=== PATIENT | female | born 1940 | race Caucasian/White ===

== ENCOUNTER 2021-10-30 07:37 | Outpatient (CLI) | payer MEDICARE, BC, SELFPAY | END 2021-10-30 07:38 | disposition home or self-care (01) | LOC: INJ CL 07:38 | PROVIDERS: PCP Family Medicine; Visit Provider Family Medicine | DX: M51.36 Other intervertebral disc degeneration, lumbar region (principal); M54.16 Radiculopathy, lumbar region | CPT/HCPCS: 62323; Q9966 ==

== ENCOUNTER 2021-12-13 12:53 | Outpatient (CLI) | payer MEDICARE, BC, SELFPAY ==
--- NOTE | 2021-12-13 13:00 | CRLHL7_ITS ---
For Patients: As a result of the Century Cures Act, medical imaging exams and procedure reports are released immediately into your electronic medical record. You may view this report before your referring provider. If you have questions, please contact your health care provider. INDICATION: Low back pain. COMPARISON: None available. TECHNIQUE: Sagittal T1, T2, and STIR sequences. Axial T1 and T2 weighted sequences. FINDINGS: Retrolisthesis of L2 on L3 and L3 on L4 measures approximate 5 mm. Anterolisthesis of L4 on L5 measures approximately 5 mm. No fractures. No vertebral body loss of height. No ligament injury. Postoperative changes of laminectomy at L4-5 with posterior dmitriy and transpedicular screw fixation. No suspicious osseous lesions. Normal conus terminates at L1. T12-L1 L1-2: No spinal canal or neural foraminal narrowing. L2-3: Disc degeneration. Posterior disc bulge. Combined facet arthropathy, there is moderate narrowing of spinal canal. No neural foraminal narrowing. Mild facet arthropathy. L3-4: Grade 1 retrolisthesis. Disc degeneration and posterior disc bulge. Combined with ligament flavum and facet hypertrophy, there moderate severe right and moderate left neural foraminal narrowing. Potential impingement of the exiting L3 nerve roots, right greater left. L4-5: Postoperative changes. No narrowing of spinal canal. Allowing for artifact, there may be mild narrowing of the right neural foramen. No narrowing of the left neural foramen. L5-S1: Posterior disc bulge. Tapered narrowing of thecal sac. No impingement of the traversing S1 nerve roots. Mild narrowing of the left neural foramen. No narrowing of the right neural foramen. Normal visualized SI joints. IMPRESSION: 1. Grade 1 retrolisthesis of L2 on L3 and L3 on L4. 2. Grade 1 anterolisthesis of L4 on L5. 3. No acute fractures. 4. Postop changes L4-5. 5. At L2-3, moderate narrowing of spinal canal 6. At L3-4, moderate to severe narrowing of the right neural foramen. Moderate narrowing of the left neuroforamen. Potential impingement of the exiting L3 nerve roots, right greater than the left. 7. At L4-5, mild narrowing of the right neural foramina 8. At L5-S1, mild narrowing of the left neuroforamen Dictated by Augei Maki MD @ 12/14/2021 10:13:20 AM (Electronically Signed)
== END 2021-12-13 12:54 | disposition home or self-care (01) ==
PROVIDERS: PCP Family Medicine; Visit Provider Family Medicine
DX: M54.50 Low back pain, unspecified (principal); M51.26 Other intervertebral disc displacement, lumbar region; M51.27 Other intervertebral disc displacement, lumbosacral region
CPT/HCPCS: 72148

== ENCOUNTER 2022-01-24 15:49 | Outpatient (CLI) | payer MEDICARE, BC, SELFPAY | END 2022-01-24 15:50 | disposition home or self-care (01) | LOC: AMB 03-03 20:35 | PROVIDERS: PCP Family Medicine; Visit Provider Emergency Medicine Emergency Medical Services | DX: R06.02 Shortness of breath (principal) | CPT/HCPCS: A0425; A0427 ==

== ENCOUNTER 2022-01-24 16:21 | Emergency (ER) | payer MEDICARE, BC, SELFPAY ==
[2022-01-24] VITALS (10 sets, daily range): BP systolic 128–156; BP diastolic 54–72; PULSE 60–78; RESP 14–23; TEMP 36.2; O2SAT 91–97; BMI 27.4
--- NOTE | 2022-01-24 17:12 | CRLHL7_ITS ---
For Patients: As a result of the Cures Act, medical imaging exams and procedure reports are released immediately into your electronic medical record. You may view this report before your referring provider. If you have questions, please contact your health care provider. INDICATION: Shortness of breath. TECHNIQUE: Chest 2 views. COMPARISON: None. FINDINGS: Lungs: Streaky bibasilar opacities. Pleura: No pleural effusion or pneumothorax. Mild elevation of the right diaphragm. Heart and Mediastinum: The cardiomediastinal silhouette is normal. The vessels are unremarkable. Bones: Unremarkable. IMPRESSION: Streaky bibasilar opacities could be atelectasis, scarring, or developing infection. Dictated by Patricio Posada MD @ 01/24/2022 8:25:47 PM (Electronically Signed)
[2022-01-24 17:38] LABS: ABG PCO2 50 mmHG (35-45); Base Excess ABG 5.4 mmol/L (-3.0-3.0); HCO3 ABG 31 mmol/L (21-28); Oxygen Saturation ABG 91 % (92-100); PO2 ABG 65.7 mmHG (80-105); TCO2 ABG 29 mmol/l (21-30)
[2022-01-24 18:15] LABS: Lactate* 0.7 mmol/L (0.5-1.9)
[2022-01-24 18:19] LABS: Basophils Absolute Auto 0.03 K/uL (0.00-0.30); Basophils Percent Auto 0.6 % (0.0-3.0); Eosinophils Absolute Auto 0.14 K/uL (0.00-0.50); Eosinophils Percent Auto 2.8 % (0.0-7.0); Hematocrit 36.8 % (33.0-51.0); Hemoglobin* 11.8 gm/dL (12.0-16.0); Immature Granulocytes Abs Auto 0.02 K/uL (0.00-0.30); Lymphocytes Absolute Auto 1.83 K/uL (0.90-2.90); Lymphocytes Percent Auto 36.8 % (20-44); Mean Corpuscular HGB Conc 32 gm/dL (32-36); Mean Corpuscular Hemoglobin 31 pg (26-34); Mean Corpuscular Volume 98 fL (80-100); Monocytes Percent Auto 12.3 % (0.0-11.0); Neutrophils Absolute Auto 2.34 K/uL (1.7-7.0); Neutrophils Percent Auto 47.1 % (42.0-72.0); Platelet Count* 184 K/uL (140-440); RDW Coefficient of Variation % 12.7 % (11.5-15.5); Red Blood Count 3.76 m/uL (4.00-5.20); White Blood Count* 4.97 K/uL (4.50-11.00)
[2022-01-24 18:20] LABS: Slide Review Reflex No
[2022-01-24 18:25] LABS: PCR FLU A Negative PCR FLU A (Negative); PCR FLU B Negative PCR FLU B (Negative); PCR RSV Negative PCR RSV (Negative)
[2022-01-24 18:33] LABS: SARS PCR* Negative SARS-CoV-2 (Negative)
[2022-01-24 18:37] LABS: INR 0.96 (0.91-1.10); Partial Thromboplastin Time* 33 Seconds (23-33); Prothrombin Time 13.4 Seconds
[2022-01-24 18:39] LABS: D Dimer Quantitative* 0.31 ug/ml (0.00-0.50)
[2022-01-24 18:48] LABS: Chloride* 101 mmol/L (96-114); Sodium* 140 mmol/L (135-149)
[2022-01-24 18:49] LABS: Potassium* 4.1 mmol/L (3.6-5.1)
[2022-01-24 18:51] LABS: Carbon Dioxide* 31 mmol/L (20-32); Estimated Glomerular Filt Rate 57 ml/min
[2022-01-24 18:52] LABS: Blood Urea Nitrogen* 28 mg/dL (7-30); Calcium* 8.7 mg/dL (8.4-10.6); Glucose* 93 mg/dL (60-115)
[2022-01-24 19:00] LABS: NT Pro B Type NatriureticPept* 244 PG/mL (0-450)
--- NOTE | 2022-01-24 19:10 | ED.SOB ---
HPI - SOB/Dyspnea General Date Seen: 01/24/22 Chief Complaint: Shortness of Breath/Dyspnea Stated Complaint: Shortness of breath Time Seen by Provider: 01/24/22 16:55 Source: patient and family Mode of arrival: EMS Limitations: no limitations History of Present Illness HPI Narrative: Melva is an 81-year-old female who presents here for evaluation of shortness of breath she was at the [facility] actually for acupuncture when it was noted that she was very short of breath, seen initially by who then called me, and thought she needed to be evaluated, saturations there approximately 90% on room air. Melva denies any chest pain, admits that she has had shortness of breath this been progressive over a 5-6 month period. She has noted some increased swelling in her legs, no nausea no vomiting denies any abdominal pain. She has had no fevers chills or sweats or any acute issue, she said she felt she just could get her breath today when she was lying on her back getting acupuncture. MD elicited complaint: shortness of breath Onset (ago): month(s) Exacerbating factors: lying flat, exertion and movement Relieving factors: oxygen Associated symptoms: denies other symptoms Treatment prior to arrival: oxygen Related Data Home oxygen amount: none Home Medications Medication Instructions Recorded Confirmed ipratropium bromide 17 2 puff inhalation Q8H 10/18/21 10/18/21 mcg/actuation HFA aerosol inhaler (Atrovent HFA) metoprolol succinate 50 mg 50 mg PO QDAY 10/18/21 10/18/21 tablet,extended release 24 hr tramadol 50 mg tablet 50 mg PO BID PRN 10/18/21 10/18/21 epinephrine 0.3 mg/0.3 mL 0.3 mg IM 12/06/21 12/06/21 injection, auto-injector esomeprazole magnesium 40 mg 40 mg PO DAILY@06 12/06/21 12/06/21 capsule,delayed release furosemide 40 mg tablet 40 mg PO BID@12/06/21 12/06/21 hydralazine 25 mg tablet 25 mg PO 12/06/21 12/06/21 levothyroxine 150 mcg tablet 150 mcg PO DAILY 12/06/21 12/06/21 losartan 100 mg tablet 100 mg PO DAILY 12/06/21 12/06/21 metoprolol succinate 50 mg mg PO DAILY 12/06/21 12/06/21 tablet,extended release 24 hr peg 400-propylene glycol 0.4 %-0.3 2 drp ophthalmic (eye) BID 12/06/21 12/06/21 % eye drops propranolol 10 mg tablet 10 mg PO .Daily as needed PRN 12/06/21 12/06/21 rivaroxaban 10 mg tablet 10 mg PO DAILY 12/06/21 12/06/21 rosuvastatin 10 mg tablet 10 mg PO DAILY 12/06/21 12/06/21 warfarin 5 mg tablet 5 mg PO DAILY 12/06/21 12/06/21 zaleplon 10 mg capsule 10 mg PO 12/06/21 12/06/21 Previous Rx's Medication Instructions Recorded doxycycline monohydrate 100 mg 100 mg PO BID #20 caps 01/24/22 capsule Allergies Allergy/AdvReac Type Severity Reaction Status Date / Time amlodipine Allergy Intermediate Edema Verified 11/14/21 13:37 codeine Allergy Intermediate Rash Verified 11/14/21 13:37 procaine Allergy Intermediate Swelling, Verified 11/14/21 13:37 rash terbinafine Allergy Intermediate Rash, Verified 11/14/21 13:37 nausea, vomiting trazodone Allergy Intermediate Unable to Verified 11/14/21 13:37 recall trospium Allergy Intermediate Diarrhea Verified 11/14/21 13:37 diazepam Allergy Mild Cardiac Verified 11/14/21 13:37 arrest midazolam Allergy Mild Cardiac Verified 11/14/21 13:37 arrest NSAIDS (Non-Steroidal Allergy Mild Unknown Verified 11/14/21 13:37 Anti-Inflamma penicillin V Allergy Mild Verified 11/14/21 13:37 propafenone Allergy Mild GI upset Verified 11/14/21 13:37 zolpidem Allergy Mild Unknown Verified 11/14/21 13:37 aluminum Allergy Unknown Verified 11/14/21 13:37 ampicillin Allergy Unknown Hives Verified 11/14/21 13:37 atorvastatin Allergy Unknown Myalgia Verified 11/14/21 13:37 azithromycin Allergy Unknown Diarrhea Verified 11/14/21 13:37 bupivacaine Allergy Unknown Verified 11/14/21 13:37 ciprofloxacin Allergy Unknown Verified 11/14/21 13:37 fentanyl Allergy Unknown Eye Verified 11/14/21 13:37 swelling hydromorphone Allergy Unknown Hives Verified 11/14/21 13:37 meperidine Allergy Unknown Verified 11/14/21 13:37 methylprednisolone Allergy Unknown Verified 11/14/21 13:37 morphine Allergy Unknown Hives Verified 11/14/21 13:37 promethazine Allergy Unknown Nausea/vomi Verified 11/14/21 13:37 ting simvastatin Allergy Unknown Diarrhea Verified 11/14/21 13:37 sumatriptan AdvReac Intermediate Ineffective Verified 11/14/21 13:37 Ketorolac tromethamine Allergy Severe Internal Uncoded 11/14/21 13:37 bleeding NARCOTICS Allergy Severe Cardiac Uncoded 11/14/21 13:37 arrest Opioid Analgesics Allergy Mild Hives Uncoded 11/14/21 13:37 All narcotics Allergy Unknown Uncoded 11/14/21 13:37 Beef Allergy Unknown Uncoded 11/14/21 13:37 Influenza A virus Allergy Unknown Fever, Uncoded 11/14/21 13:37 nausea/vomiting Pork Allergy Unknown Uncoded 11/14/21 13:37 Review of Systems Status of ROS: Reports: 6 or more systems reviewed and unremarkable except as noted in History and below [facility] Medical History Lumbar radiculopathy Spinal stenosis Surgical History H/O knee surgery H/O thyroidectomy H/O: hysterectomy Social History Smoking Status: Former smoker Do you use any of these nicotine containing products: None Second hand tobacco smoke exposure: No How often do you have a drink containing alcohol: monthly or less How many standard drinks containing alcohol do you have on a typical day: 1 or 2 How often do you have six or more drinks on one occasion: Never AUDIT-C Alcohol total score: 1 Non-prescribed substance use: denies use service: No Exam Narrative: Exam Narrative: Patient is seen in stable room 2, she is in no distress she is speaking to me, she is sitting upright however. Her pupils are equal round reactive to light, there is no scleral icterus redness TMs are normal oropharynx is normal, her neck is thick and I cannot see her JVP. Cranial nerves 3-12 are normal. Her chest has some crackles in the bases but she has no wheezes noted there is no signs of respiratory distress, but she is breathing a little fast. She is currently on room air. Heart sounds no clicks murmurs or gallops her abdomen is soft there is no guarding no past splenomegaly bowel sounds are normal, and a large obese abdomen is noted, there is no masses noted, no leg swelling is noted she moves all extremities independently and well. Const: Vital Signs, click to edit/add: Vital Signs - 24 hr 01/24/22 16:26 01/24/22 17:42 01/24/22 19:05 Temperature 97.1 F L Pulse Rate Pulse Rate [Pulse Oximeter] 78 60 Respiratory Rate 22 14 Blood Pressure [Ri ght Upper Arm] 150/72 H 156/69 H Pulse Oximetry 95 95 Oxygen Delivery Me thod Room Air Room Air Room Air Fraction of Inspir ed Oxygen 0.21 01/24/22 19:23 01/24/22 19:30 Temperature Pulse Rate 63 61 Pulse Rate [Pulse Oximeter] Respiratory Rate Blood Pressure [Ri ght Upper Arm] Pulse Oximetry 96 97 Oxygen Delivery Me thod Fraction of Inspir ed Oxygen Course Course Hospital Course: Melva troponin x2 is negative, D-dimer is negative, no evidence of significant congestive heart failure, I repeated her x-ray is I was not able to get in here, and the radiologist question whether she has chronic infiltrates versus atelectasis verses possible pneumonia, white count was normal, I think a reasonable course here would be to put her on some doxycycline which she does not have an allergy 2, and trial this for the next 10 days twice a day, increasing chest pain or shortness of breath she should come back and be seen, she was very comfortable this common remained stable here in the ER off oxygen, in no apparent distress. Vital Signs Vital signs: Initial Vital Signs Temperature 97.1 F L 01/24/22 16:26 Temperature Source Temporal Artery Scan 01/24/22 16:26 Pulse Rate 78 01/24/22 16:26 Pulse Rhythm 01/24/22 16:26 Respiratory Rate 22 01/24/22 16:26 Blood Pressure 150/72 H 01/24/22 16:26 Blood Pressure Mean 98 01/24/22 16:26 Blood Pressure Position Supine 01/24/22 16:26 Pulse Oximetry 95 01/24/22 16:26 Oxygen Delivery Method 01/24/22 16:26 Vital Signs Temperature 97.1 F L 01/24/22 16:26 Pulse Rate 78 01/24/22 16:26 Respiratory Rate 22 01/24/22 16:26 Blood Pressure 150/72 H 01/24/22 16:26 Pulse Oximetry 95 01/24/22 16:26 Oxygen Delivery Method 01/24/22 16:26 Temperature 97.1 F L 01/24/22 16:26 Pulse Rate 61 01/24/22 19:30 Respiratory Rate 14 01/24/22 19:05 Blood Pressure 156/69 H 01/24/22 19:05 Pulse Oximetry 97 01/24/22 19:30 Oxygen Delivery Method 01/24/22 19:05 Fraction of Inspired Oxygen 0.21 01/24/22 17:42 MDM - SOB/Dyspnea MDM Narrative Medical decision making narrative: Life-threatening differential diagnosis includes occluded COPD exacerbation, pulmonary edema, acute coronary syndromes, pulmonary embolism, pneumonia, and pneumothorax. Other differential diagnosis considerations include asthma, bronchitis as well as other etiologies Differential Diagnosis Differential diagnosis: Likely acute exacerbation of chronic obstructive airways disease, congestive heart failure, community acquired pneumonia, asthma with exacerbation and pulmonary embolism Medical Records Attestation: I reviewed the patient's medical records. Lab Data Attestation: I reviewed the patient's lab results. Labs: Lab Results 01/24/22 01/24/22 01/24/22 Range/Units 17:12 17:40 18:05 WBC (4.50-11.00) K/uL RBC (4.00-5.20) m/uL Hgb (12.0-16.0) gm/dL Hct (33.0-51.0) % MCV (80-100) fL MCH (26-34) pg MCHC (32-36) gm/dL RDW Coeff of Hernán (11.5-15.5) % Plt Count (140-440) K/uL Neut % (Auto) (42.0-72.0) % Lymph % (Auto) (20-44) % Rosebud % (Auto) (0.0-11.0) % Eos % (Auto) (0.0-7.0) % Baso % (Auto) (0.0-3.0) % Neut # (Auto) (1.7-7.0) K/uL Lymph # (Auto) (0.90-2.90) K/uL Rosebud # (Auto) (0.00-0.90) K/UL Eos # (Auto) (0.00-0.50) K/uL Baso # (Auto) (0.00-0.30) K/uL Abs Immat Gran (auto) (0.00-0.30) K/uL INR (0.91-1.10) APTT (23-33) Seconds D-Dimer Quant (PE/DVT) (0.00-0.50) ug/ml ABG pH 7.40 (7.35-7.45) ABG pCO2 50 H (35-45) mmHG ABG pO2 65.7 L (80-105) mmHG ABG HCO3 31 H (21-28) mmol/L ABG Total CO2 29 (21-30) mmol/l ABG O2 Saturation 91 L (92-100) % ABG Base Excess 5.4 H (-3.0-3.0) mmol/L Sodium 140 (135-149) mmol/L Potassium 4.1 (3.6-5.1) mmol/L Chloride 101 (96-114) mmol/L Carbon Dioxide 31 (20-32) mmol/L BUN 28 (7-30) mg/dL Creatinine 1.0 (0.5-1.5) mg/dL Estimated Creat Clear 42.00 Estimated GFR 57 ml/min Glucose 93 (60-115) mg/dL Lactate (0.5-1.9) mmol/L Calcium 8.7 (8.4-10.6) mg/dL NT-Pro-B Natriuret Pep (0-450) PG/mL SARS-CoV-2 (PCR) Negative SARS-CoV-2 (Negative) Influenza Type A (PCR) Negative PCR FLU A (Negative) Influenza Type B (PCR) Negative PCR FLU B (Negative) RSV (PCR) Negative PCR RSV (Negative) POC Troponin I (0.01-0.04) ng/ml 01/24/22 01/24/22 01/24/22 Range/Units 18:05 18:05 18:05 WBC 4.97 (4.50-11.00) K/uL RBC 3.76 L (4.00-5.20) m/uL Hgb 11.8 L (12.0-16.0) gm/dL Hct 36.8 (33.0-51.0) % MCV 98 (80-100) fL MCH 31 (26-34) pg MCHC 32 (32-36) gm/dL RDW Coeff of Hernán 12.7 (11.5-15.5) % Plt Count 184 (140-440) K/uL Neut % (Auto) 47.1 (42.0-72.0) % Lymph % (Auto) 36.8 (20-44) % Rosebud % (Auto) 12.3 H (0.0-11.0) % Eos % (Auto) 2.8 (0.0-7.0) % Baso % (Auto) 0.6 (0.0-3.0) % Neut # (Auto) 2.34 (1.7-7.0) K/uL Lymph # (Auto) 1.83 (0.90-2.90) K/uL Rosebud # (Auto) 0.60 (0.00-0.90) K/UL Eos # (Auto) 0.14 (0.00-0.50) K/uL Baso # (Auto) 0.03 (0.00-0.30) K/uL Abs Immat Gran (auto) 0.02 (0.00-0.30) K/uL INR 0.96 (0.91-1.10) APTT 33 (23-33) Seconds D-Dimer Quant (PE/DVT) 0.31 (0.00-0.50) ug/ml ABG pH (7.35-7.45) ABG pCO2 (35-45) mmHG ABG pO2 (80-105) mmHG ABG HCO3 (21-28) mmol/L ABG Total CO2 (21-30) mmol/l ABG O2 Saturation (92-100) % ABG Base Excess (-3.0-3.0) mmol/L Sodium (135-149) mmol/L Potassium (3.6-5.1) mmol/L Chloride (96-114) mmol/L Carbon Dioxide (20-32) mmol/L BUN (7-30) mg/dL Creatinine (0.5-1.5) mg/dL Estimated Creat Clear Estimated GFR ml/min Glucose (60-115) mg/dL Lactate (0.5-1.9) mmol/L Calcium (8.4-10.6) mg/dL NT-Pro-B Natriuret Pep 244 (0-450) PG/mL SARS-CoV-2 (PCR) (Negative) Influenza Type A (PCR) (Negative) Influenza Type B (PCR) (Negative) RSV (PCR) (Negative) POC Troponin I (0.01-0.04) ng/ml 01/24/22 01/24/22 01/24/22 Range/Units 18:05 18:05 20:54 WBC (4.50-11.00) K/uL RBC (4.00-5.20) m/uL Hgb (12.0-16.0) gm/dL Hct (33.0-51.0) % MCV (80-100) fL MCH (26-34) pg MCHC (32-36) gm/dL RDW Coeff of Hernán (11.5-15.5) % Plt Count (140-440) K/uL Neut % (Auto) (42.0-72.0) % Lymph % (Auto) (20-44) % Rosebud % (Auto) (0.0-11.0) % Eos % (Auto) (0.0-7.0) % Baso % (Auto) (0.0-3.0) % Neut # (Auto) (1.7-7.0) K/uL Lymph # (Auto) (0.90-2.90) K/uL [place]bud # (Auto) (0.00-0.90) K/UL Eos # (Auto) (0.00-0.50) K/uL Baso # (Auto) (0.00-0.30) K/uL Abs Immat Gran (auto) (0.00-0.30) K/uL INR (0.91-1.10) APTT (23-33) Seconds D-Dimer Quant (PE/DVT) (0.00-0.50) ug/ml ABG pH (7.35-7.45) ABG pCO2 (35-45) mmHG ABG pO2 (80-105) mmHG ABG HCO3 (21-28) mmol/L ABG Total CO2 (21-30) mmol/l ABG O2 Saturation (92-100) % ABG Base Excess (-3.0-3.0) mmol/L Sodium (135-149) mmol/L Potassium (3.6-5.1) mmol/L Chloride (96-114) mmol/L Carbon Dioxide (20-32) mmol/L BUN (7-30) mg/dL Creatinine (0.5-1.5) mg/dL Estimated Creat Clear Estimated GFR ml/min Glucose (60-115) mg/dL Lactate 0.7 (0.5-1.9) mmol/L Calcium (8.4-10.6) mg/dL NT-Pro-B Natriuret Pep (0-450) PG/mL SARS-CoV-2 (PCR) (Negative) Influenza Type A (PCR) (Negative) Influenza Type B (PCR) (Negative) RSV (PCR) (Negative) POC Troponin I 0.00 L 0.00 L (0.01-0.04) ng/ml Imaging Data Chest x-ray: Attestation: I have reviewed the pertinent imaging results. Radiologist's impression: Patient: MELVA STEPHEN Facility: [facility] . Site : [id number] Study: XRay Chest 2V-01/24/2022 8:22:59 PM Ordering Physician: Vinod Rodriguez Final Report: INDICATION: Shortness of breath. TECHNIQUE: Chest 2 views. COMPARISON: None. FINDINGS: Lungs: Streaky bibasilar opacities. Pleura: No pleural effusion or pneumothorax. Mild elevation of the right diaphragm. Heart and Mediastinum: The cardiomediastinal silhouette is normal. The vessels are unremarkable. Bones: Unremarkable. IMPRESSION: Streaky bibasilar opacities could be atelectasis, scarring, or developing infection. Dictated by Patricio Posada MD @ 01/24/2022 8:25:47 PM (Electronic Signature) Discharge Plan Discharge Clinical Impression: Community acquired pneumonia, Chronic shortness of breath Patient Disposition: Home w/ Parent or Adult Condition: Stable Instructions: Community Acquired Pneumonia (ED) Additional Instructions: Home rest follow-up with primary care in 5-7 days time, give antibiotics as directed, return if increasing chest pain shortness of breath or other issues. Prescriptions: New doxycycline monohydrate 100 mg capsule 100 mg PO BID Qty: 20 0RF No Action metoprolol succinate 50 mg tablet extended release 24 hr 50 mg PO QDAY tramadol 50 mg tablet 50 mg PO BID PRN Atrovent HFA 17 mcg/actuation HFA aerosol inhaler 2 puff inhalation Q8H rivaroxaban 10 mg tablet 10 mg PO DAILY rosuvastatin 10 mg tablet 10 mg PO DAILY peg 400-propylene glycol 0.4-0.3 % drops 2 drp ophthalmic (eye) BID epinephrine 0.3 mg/0.3 mL auto-injector 0.3 mg IM zaleplon 10 mg capsule 10 mg PO levothyroxine 150 mcg tablet 150 mcg PO DAILY warfarin 5 mg tablet 5 mg PO DAILY esomeprazole magnesium 40 mg capsule,delayed release(DR/EC) 40 mg PO DAILY@06 hydralazine 25 mg tablet 25 mg PO metoprolol succinate 50 mg tablet extended release 24 hr PO DAILY furosemide 40 mg tablet 40 mg PO BID@08,13 propranolol 10 mg tablet 10 mg PO .Daily as needed PRN Rx Instructions: As needed for racing heart losartan 100 mg tablet 100 mg PO DAILY Follow Up/Referrals: Raiza Salcido MD [Primary Care Provider] - Stand Alone Forms: [employer] Info Instructions
[2022-01-24] MEDS: DOXYCYCLINE HYCLATE 100 MG CAPSULE PO (21:52)
== END 2022-01-24 21:56 | disposition home or self-care (01) ==
PROVIDERS: Emergency Provider Family Medicine; PCP Family Medicine
DX: J18.9 Pneumonia, unspecified organism (principal)
CPT/HCPCS: 36415; 36600; 71046; 80048; 82803; 83605; 83880; 85025; 85379; 85610; 85730; 87502; 87634; 87635; 93005; 99284; 99285; A9270

== ENCOUNTER 2022-01-31 14:00 | Outpatient (RCR) | payer MEDICARE, BC, SELFPAY ==
--- NOTE | 2021-12-31 17:52 | PT.OPEX ---
PT [place] [facility] Eval [facility] Out[facility] Eval Start: 12/31/21 13:52 Freq: Status: Active Protocol: Document 12/31/21 13:53 NOEL (Rec: 12/31/21 16:50 NOEL [id number]) E-signed By Des Noble PT Physical Therapy Outpatient Evaluation Insurance Information Insurance Name Medicare B Medical Diagnosis Back Pain Lumbar Radiculopathy Spinal Stenosis Treating Diagnosis Core deconditioning LE deconditioning Referring MD Brock Subjective Pain Comments Date of Last Physician Visit 12/06/21 Preferred Name Melva Objective Other/Pertinent Objective Mod Oswestry = Assessment Assessment/Impression Objectively, pt. demonstrates; limited lumbar ROM with most pain during flexion movements; negative bilat. hip testing with pretty good hip ROM bilat and without pain provocation; core weakness and deconditioning; flattened lumbar spine posture; negative slump with mildly positive SLR on right for increased pain in hip/LB; and poor sit to stand ability due to pain and functional core and quad weakness. She would benefit from skilled therapy working on a progressive core, lumbar, upper body and lower body strengthening program with bias toward positions of spine that are less irritating for her. Primary Functional Limitations lifting, standing up, walking Plan of Care Rehabilitation Potential Good Physical Therapy Goals 1. Pt. will be independent with HEP for self maintenance in 8 weeks. 2. Pt. will demonstrate improved mobility and core strength in 8 weeks. 3. Pt. will be able to bend and lift for normal ADL's with less pain and dysfunction in 8 weeks. Coordination/Communication With Referral Source Treatment Plan/Direct Interventions Manual Therapy,Neuromuscular Re-ed,Self-Care/Home Management,Therapeutic Activities,Therapeutic Exercises Frequency/Duration 2 times a week for 6-8 weeks Patient Will Be Discharged From Therapy Independent w/HEP, Independently Progressing Evaluation Billing Complexity Moderate Certification Information Initial Certification Date 12/31/21 Ending Certification Date 03/25/22 Provider Signature Shows Agreement With POC & Medical Necessity Physician Comment/Change Comment or Changes Physician NPI Number #
== END 2022-05-03 14:34 | disposition home or self-care (01) ==
PROVIDERS: PCP Family Medicine; Visit Provider Family Medicine
DX: M54.16 Radiculopathy, lumbar region (principal); Z51.89 Encounter for other specified aftercare
CPT/HCPCS: 97110; 97162

== ENCOUNTER 2022-04-11 09:07 | Outpatient (CLI) | payer MEDICARE, BC, SELFPAY ==
--- NOTE | 2022-04-11 09:15 | CRLHL7_ITS ---
For Patients: As a result of the 21st Century Cures Act, medical imaging exams and procedure reports are released immediately into your electronic medical record. You may view this report before your referring provider. If you have questions, please contact your health care provider. INDICATION: MUSCLE WEAKNESS TECHNIQUE: Modified barium swallow. Fluoroscopic time 1 minutes 9 seconds. COMPARISON: None FINDINGS/IMPRESSION: Anatomical structures are normal. Swallowing mechanism appears within normal limits. No episodes of penetration or aspiration. No significant findings. Dictated by Levi Arechiga MD @ 04/11/2022 10:06:46 AM (Electronically Signed)
== END 2022-04-11 09:08 | disposition home or self-care (01) ==
LOC: RAD 09:08
PROVIDERS: PCP Family Medicine; Visit Provider Psychiatry & Neurology Neurology
DX: M62.81 Muscle weakness (generalized) (principal)
CPT/HCPCS: 74230; 92611

== ENCOUNTER 2022-06-23 20:19 | Emergency (ER) | payer MEDICARE, BC, SELFPAY ==
[2022-06-23 20:26] VITALS: BP 197/98; PULSE 84; RESP 18; TEMP 36.8; O2SAT 95; BMI 30.7
--- NOTE | 2022-06-23 20:42 | CRLHL7_ITS ---
For Patients: As a result of the Cures Act, medical imaging exams and procedure reports are released immediately into your electronic medical record. You may view this report before your referring provider. If you have questions, please contact your health care provider. INDICATION: Post fusion pain, post lumbar fusion pain, post fusion and pain TECHNIQUE: Lumbar spine radiograph 2 views COMPARISON: 03/11/2022 FINDINGS: Bone: No acute fractures or aggressive bone lesions are identified. Mild degenerative disc disease with trace retrolisthesis is seen at L2-3. Disc: The transpedicular fusion at L4-5 seen on prior examination has been extended to L3-L5 with intervening bone graft at L3-4. Immature bone graft is also present along the right paraspinal region at L3. Moderate bilateral facet osteoarthritis is present at L4-5 and L5-S1. Soft tissue: Unremarkable. No radiopaque foreign bodies are seen. Moderate atherosclerotic calcification of the abdominal aorta is noted. Surgical clips are noted in the right upper quadrant from prior cholecystectomy. IMPRESSION: 1. No acute osseous injuries or abnormalities are noted. Dictated by Kayode Ruth MD @ 06/23/2022 9:44:06 PM Dictated by: Kayode Ruth MD @ 06/23/2022 21:45:07 (Electronically Signed)
[2022-06-23 21:22] LABS: Lactate* 0.9 mmol/L (0.5-1.9)
[2022-06-23 21:30] VITALS: BP 184/78; PULSE 79; RESP 18; TEMP 36.8; O2SAT 95; O2SAT 97
[2022-06-23 21:32] LABS: Basophils Absolute Auto 0.02 K/uL (0.00-0.30); Basophils Percent Auto 0.4 % (0.0-3.0); Eosinophils Absolute Auto 0.02 K/uL (0.00-0.50); Eosinophils Percent Auto 0.4 % (0.0-7.0); Hematocrit 37.5 % (33.0-51.0); Hemoglobin* 12.3 gm/dL (12.0-16.0); Immature Granulocytes Abs Auto 0.01 K/uL (0.00-0.30); Immature Granulocytes Pct Auto 0.2 %; Lymphocytes Absolute Auto 1.25 K/uL (0.90-2.90); Lymphocytes Percent Auto 25.4 % (20-44); Mean Corpuscular HGB Conc 33 gm/dL (32-36); Mean Corpuscular Hemoglobin 31 pg (26-34); Mean Corpuscular Volume 94 fL (80-100); Monocytes Percent Auto 7.3 % (0.0-11.0); Neutrophils Absolute Auto 3.27 K/uL (1.7-7.0); Neutrophils Percent Auto 66.3 % (42.0-72.0); Platelet Count* 348 K/uL (140-440); RDW Coefficient of Variation % 12.2 % (11.5-15.5); Red Blood Count 3.99 m/uL (4.00-5.20); White Blood Count* 4.93 K/uL (4.50-11.00)
[2022-06-23 21:37] LABS: Slide Review Reflex No
[2022-06-23 21:53] LABS: C Reactive Protein* < 0.5 mg/dL (0.5-1.0)
[2022-06-23 22:01] LABS: Albumin* 4.4 g/dL (3.3-5.0); Appearance Urine Clear (Clear); Bilirubin Urine 1+ (Negative); Blood Urine Negative (Negative); Color Urine Yellow (Yellow); Glucose Urine Negative (Negative); Ketones Urine 1+ (Negative); Leukocyte Esterase Urine Negative (Negative); Nitrite Urine Negative (Negative); Protein Urine Trace (Negative); Specific Gravity Urine 1.025 (1.000-1.030); Urobilinogen Urine 0.2 (0.2-1.0)
[2022-06-23 22:02] LABS: Chloride* 106 mmol/L (96-114); Potassium* 3.9 mmol/L (3.6-5.1); Sodium* 139 mmol/L (135-149)
[2022-06-23 22:04] LABS: Alkaline Phosphatase* 100 U/L (40-150); Aspartate Amino Transferase* 25 U/L (12-35); Bilirubin Total* 0.7 mg/dL (0.1-1.5); Blood Urea Nitrogen* 14 mg/dL (7-30); Carbon Dioxide* 26 mmol/L (20-32); Creatinine* 0.7 mg/dL (0.5-1.5); Estimated Glomerular Filt Rate 87 ml/min; Total Protein* 7.2 g/dL (6.0-8.3)
[2022-06-23 22:05] LABS: Alanine Aminotransferase* 25 U/L (4-35); Calcium* 9.5 mg/dL (8.4-10.6); Glucose* 124 mg/dL (60-115)
[2022-06-23 22:06] LABS: Procalcitonin* 0.04 ng/mL (<0.50)
[2022-06-23 22:16] LABS: RBC Urine 0-2 (0-2); WBC Urine 0-2 (0-5)
[2022-06-23 23:30] VITALS: BP 174/79; PULSE 73; RESP 18; TEMP 36.9; O2SAT 97
[2022-06-23] MEDS: OxyCODONE/APAP 5-325 TABLET 2 TAB PO (23:40)
[2022-06-23 23:45] VITALS: BP 174/79; PULSE 73; RESP 18; TEMP 36.9
--- NOTE | 2022-06-24 00:01 | ED.BACK ---
HPI - Back Pain/Injury General Date Seen: 06/24/22 Chief Complaint: Back Injury/Pain Stated Complaint: Surgery 2 weeks ago, pain in back left side Time Seen by Provider: 06/23/22 20:24 Source: patient and family Mode of arrival: ambulatory Limitations: no limitations History of Present Illness HPI Narrative: Mrs. Stephen is a very nice lady who underwent lumbar fusion with Dr. Frankel 17 days ago at [facility]. She has had increasing pain on the left side of her lower back, since for the last 7-10 days, he has been using her hydrocodone 2 tablets every 4 hours for this, her upper legs bilaterally seem a little bit sore, she denies any bowel or bladder symptoms associated with this, fevers chills or sweats, redness of her scar, or other issues. She comes in tonight because of the pain. She saw her regular physician 2 days ago, and she said the scar looks good. Denies any abdominal pain MD elicited complaint: back pain Pertinent past history: prior back pain and back surgery Onset (ago): day(s) Timing: constant Severity: moderate Similar Symptoms Previously: Yes Location: lumbar spine and left flank Relieving factors: walking Associated symptoms: denies other symptoms Work related injury: No Related Data Home Medications Medication Instructions Recorded Confirmed ipratropium bromide 17 2 puff inhalation Q8H 10/18/21 06/23/22 mcg/actuation HFA aerosol inhaler (Atrovent HFA) metoprolol succinate 50 mg 50 mg PO QDAY 10/18/21 06/23/22 tablet,extended release 24 hr tramadol 50 mg tablet 50 mg PO BID PRN 10/18/21 06/23/22 epinephrine 0.3 mg/0.3 mL 0.3 mg IM DIRECTED 12/06/21 06/23/22 injection, auto-injector esomeprazole magnesium 40 mg 40 mg PO DAILY@06 12/06/21 06/23/22 capsule,delayed release furosemide 40 mg tablet 40 mg PO BID@12/06/21 06/23/22 hydralazine 25 mg tablet 25 mg PO BID 12/06/21 06/23/22 levothyroxine 150 mcg tablet 150 mcg PO DAILY 12/06/21 06/23/22 losartan 100 mg tablet 100 mg PO DAILY 12/06/21 06/23/22 rosuvastatin 10 mg tablet 10 mg PO DAILY 12/06/21 06/23/22 Lactobacillus rhamnosus GG 10 1 cap PO DAILY 06/23/22 06/23/22 billion cell capsule (Culturelle) apixaban 5 mg tablet (Eliquis) 5 mg PO BID 06/23/22 06/23/22 flecainide 100 mg tablet 100 mg PO Q12H 06/23/22 06/23/22 hydrocodone 5 mg-acetaminophen 325 1 - 2 tab PO Q4H 06/23/22 06/23/22 mg tablet hyoscyamine sulfate 0.125 mg 0.125 mg sublingual Q4H PRN 06/23/22 06/23/22 sublingual tablet abdominal pain methocarbamol 750 mg tablet 750 mg PO Q6H PRN 06/23/22 06/23/22 mirtazapine 30 mg tablet 30 mg PO QPM 06/23/22 06/23/22 nitrofurantoin macrocrystal 50 mg 50 mg PO DAILY 06/23/22 06/23/22 capsule potassium chloride 20 mEq 20 meq PO 3XD 06/23/22 06/23/22 tablet,extended release(part/cryst) pregabalin 150 mg capsule 150 mg PO BID 06/23/22 06/23/22 sennosides 8.6 mg-docusate sodium 1 tab-cap PO DAILY 06/23/22 06/23/22 50 mg tablet (Colace 2-In-1) Previous Rx's Medication Instructions Recorded oxycodone-acetaminophen 5 mg-325 1 tab PO Q6H PRN pain #20 tabs 06/23/22 mg tablet (Percocet) Allergies Allergy/AdvReac Type Severity Reaction Status Date / Time amlodipine Allergy Intermediate Edema Verified 06/23/22 23:28 codeine Allergy Intermediate Rash Verified 06/23/22 23:28 procaine Allergy Intermediate Swelling, Verified 06/23/22 23:28 rash terbinafine Allergy Intermediate Rash, Verified 06/23/22 23:28 nausea, vomiting trazodone Allergy Intermediate Unable to Verified 06/23/22 23:28 recall trospium Allergy Intermediate Diarrhea Verified 06/23/22 23:28 diazepam Allergy Mild Cardiac Verified 06/23/22 23:28 arrest midazolam Allergy Mild Cardiac Verified 06/23/22 23:28 arrest NSAIDS (Non-Steroidal Allergy Mild Unknown Verified 06/23/22 23:28 Anti-Inflamma penicillin V Allergy Mild Verified 06/23/22 23:28 propafenone Allergy Mild GI upset Verified 06/23/22 23:28 zolpidem Allergy Mild Unknown Verified 06/23/22 23:28 aluminum Allergy Unknown Verified 06/23/22 23:28 ampicillin Allergy Unknown Hives Verified 06/23/22 23:28 atorvastatin Allergy Unknown Myalgia Verified 06/23/22 23:28 azithromycin Allergy Unknown Diarrhea Verified 06/23/22 23:28 bupivacaine Allergy Unknown Verified 06/23/22 23:28 ciprofloxacin Allergy Unknown Verified 06/23/22 23:28 fentanyl Allergy Unknown Eye Verified 06/23/22 23:28 swelling hydromorphone Allergy Unknown Hives Verified 06/23/22 23:28 meperidine Allergy Unknown Verified 06/23/22 23:28 methylprednisolone Allergy Unknown Verified 06/23/22 23:28 morphine Allergy Unknown Hives Verified 06/23/22 23:28 promethazine Allergy Unknown Nausea/vomi Verified 06/23/22 23:28 ting simvastatin Allergy Unknown Diarrhea Verified 06/23/22 23:28 hydrocodone AdvReac Intermediate GI Upset Verified 06/23/22 23:28 sumatriptan AdvReac Intermediate Ineffective Verified 06/23/22 23:28 Ketorolac tromethamine Allergy Severe Internal Uncoded 11/14/21 13:37 bleeding NARCOTICS Allergy Severe Cardiac Uncoded 11/14/21 13:37 arrest Opioid Analgesics Allergy Mild Hives Uncoded 11/14/21 13:37 All narcotics Allergy Unknown Uncoded 11/14/21 13:37 Beef Allergy Unknown Uncoded 11/14/21 13:37 Influenza A virus Allergy Unknown Fever, Uncoded 11/14/21 13:37 nausea/vomiting Pork Allergy Unknown Uncoded 11/14/21 13:37 Review of Systems Status of ROS: Reports: 10 or more systems reviewed and unremarkable except as noted in History and below [facility] Medical History Depression ?F32.A - Depression, unspecified (ICD-10) Edema ?R60.9 - Edema, unspecified (ICD-10) GERD (gastroesophageal reflux disease) ?K21.9 - Gastro-esophageal reflux disease without esophagitis (ICD-10) Hypertension ?I10 - Essential (primary) hypertension (ICD-10) Hypopotassemia ?E87.6 - Hypokalemia (ICD-10) Hypothyroidism ?E03.9 - Hypothyroidism, unspecified (ICD-10) Lumbar radiculopathy ?M54.16 - Radiculopathy, lumbar region (ICD-10) Malignant neoplasm of thyroid gland ?C73 - Malignant neoplasm of thyroid gland (ICD-10) Migraines ?G43.909 - Migraine, unspecified, not intractable, without status migrainosus (ICD-10) Paroxysmal atrial fibrillation ?I48.0 - Paroxysmal atrial fibrillation (ICD-10) Spinal stenosis ?M48.00 - Spinal stenosis, site unspecified (ICD-10) Surgical History H/O knee surgery ?Z98.890 - Other specified postprocedural states (ICD-10) H/O thyroidectomy ?E89.0 - Postprocedural hypothyroidism (ICD-10) H/O: hysterectomy ?Z90.710 - Acquired absence of both cervix and uterus (ICD-10) Social History Smoking Status: Former smoker Do you use any of these nicotine containing products: None Second hand tobacco smoke exposure: No How often do you have a drink containing alcohol: monthly or less How many standard drinks containing alcohol do you have on a typical day: 1 or 2 How often do you have six or more drinks on one occasion: Never AUDIT-C Alcohol total score: 1 Non-prescribed substance use: denies use service: No Exam Narrative: Exam Narrative: Patient is seen in room 5, she is able to stand for me, she has some mild discomfort along the left posterior sacroiliac crest, her scar looks very well, with no significant redness, there is a little bogginess in the mid part of the incision which I believe is likely a seroma, but is not tender it is not warm. Associated with this she is not wearing her lumbar brace currently. SLR is are negative to 90? her EHLs great toe flexors ankle dorsiflexors plantar flexors knee flexors 10 sirs and hip flexors are graded 5/5 power bilaterally, sensations normal pulses are normal in her lower extremities her abdomen is soft there is no guarding, no tenderness, no organomegaly Const: Vital Signs, click to edit/add: Vital Signs - 24 hr 06/23/22 20:26 Temperature 98.2 F Pulse Rate [Right Pulse Oximeter] 84 Respiratory Rate 18 Blood Pressure [Ri ght Upper Arm] 197/98 H Pulse Oximetry 95 Oxygen Delivery Me thod Room Air Documenting provider has reviewed patient's vital signs: yes Course Course Hospital Course: Went back in and saw the patient informed of her normal lab results, I said I would give her some pain medication tonight and then have her follow-up or least call Dr. Frankel is office, to check in with him, I think from the emergency standpoint everything looks good with her fusion, and no evidence of infection. Vital Signs Vital signs: Initial Vital Signs Temperature 98.2 F 06/23/22 20:26 Temperature Source Temporal Artery Scan 06/23/22 20:26 Pulse Rate 84 06/23/22 20:26 Respiratory Rate 18 06/23/22 20:26 Blood Pressure 197/98 H 06/23/22 20:26 Blood Pressure Mean 131 06/23/22 20:26 Blood Pressure Position Sitting 06/23/22 20:26 Pulse Oximetry 95 06/23/22 20:26 Oxygen Delivery Method Room Air 06/23/22 20:26 Vital Signs Temperature 98.2 F 06/23/22 20:26 Pulse Rate 84 06/23/22 20:26 Respiratory Rate 18 06/23/22 20:26 Blood Pressure 197/98 H 06/23/22 20:26 Pulse Oximetry 95 06/23/22 20:26 Oxygen Delivery Method Room Air 06/23/22 20:26 Temperature 98.2 F 06/23/22 20:26 Pulse Rate 84 06/23/22 20:26 Respiratory Rate 18 06/23/22 20:26 Blood Pressure 197/98 H 06/23/22 20:26 Pulse Oximetry 95 06/23/22 20:26 Oxygen Delivery Method Room Air 06/23/22 20:26 MDM - Back Pain/Injury Medical Records Attestation: I reviewed the patient's medical records. Lab Data Attestation: I reviewed the patient's lab results. Labs: Lab Results 06/23/22 06/23/22 Range/Units 20:48 21:22 WBC 4.93 (4.50-11.00) K/uL RBC 3.99 L (4.00-5.20) m/uL Hgb 12.3 (12.0-16.0) gm/dL Hct 37.5 (33.0-51.0) % MCV 94 (80-100) fL MCH 31 (26-34) pg MCHC 33 (32-36) gm/dL RDW Coeff of Hernán 12.2 (11.5-15.5) % Plt Count 348 (140-440) K/uL Neut % (Auto) 66.3 (42.0-72.0) % Lymph % (Auto) 25.4 (20-44) % [place] % (Auto) 7.3 (0.0-11.0) % Eos % (Auto) 0.4 (0.0-7.0) % Baso % (Auto) 0.4 (0.0-3.0) % Neut # (Auto) 3.27 (1.7-7.0) K/uL Lymph # (Auto) 1.25 (0.90-2.90) K/uL [place] # (Auto) 0.40 (0.00-0.90) K/UL Eos # (Auto) 0.02 (0.00-0.50) K/uL Baso # (Auto) 0.02 (0.00-0.30) K/uL Sodium 139 (135-149) mmol/L Potassium 3.9 (3.6-5.1) mmol/L Chloride 106 (96-114) mmol/L Carbon Dioxide 26 (20-32) mmol/L BUN 14 (7-30) mg/dL Creatinine 0.7 (0.5-1.5) mg/dL Estimated Creat Clear 42.00 Estimated GFR 87 ml/min Glucose 124 H (60-115) mg/dL Lactate 0.9 (0.5-1.9) mmol/L Calcium 9.5 (8.4-10.6) mg/dL Total Bilirubin 0.7 (0.1-1.5) mg/dL AST 25 (12-35) U/L ALT 25 (4-35) U/L Alkaline Phosphatase 100 (40-150) U/L C-Reactive Protein < 0.5 L (0.5-1.0) mg/dL Total Protein 7.2 (6.0-8.3) g/dL Albumin 4.4 (3.3-5.0) g/dL Procalcitonin 0.04 (<0.50) ng/mL Urine Color Yellow (Yellow) Urine Appearance Clear (Clear) Urine pH 5.0 (5.0-8.5) Ur Specific [place] 1.025 (1.000-1.030) Urine Protein Trace A (Negative) Urine Glucose (UA) Negative (Negative) Urine Ketones 1+ A (Negative) Urine Blood Negative (Negative) Urine Nitrite Negative (Negative) Urine Bilirubin 1+ A (Negative) Urine Urobilinogen 0.2 (0.2-1.0) Ur Leukocyte Esterase Negative (Negative) Urine RBC 0-2 (0-2) Urine WBC 0-2 (0-5) Ur Squamous Epith Cells None (None-Few) Urine Bacteria None (None) Imaging Data Lumbar x-ray: Attestation: I have reviewed the pertinent imaging results. My impression: No acute findingsPatient: CASIMIRO STEPHEN Facility: [facility] Site . Site : 1940 Study: XRay Spine Lumbar 2 VIEWS-06/23/2022 9:36:14 PM Ordering Physician: Vinod Rodriguez Final Report: INDICATION: Post fusion pain, post lumbar fusion pain, post fusion and pain TECHNIQUE: Lumbar spine radiograph 2 views COMPARISON: 03/11/2022 FINDINGS: Bone: No acute fractures or aggressive bone lesions are identified. Mild degenerative disc disease with trace retrolisthesis is seen at L2-3. Disc: The transpedicular fusion at L4-5 seen on prior examination has been extended to L3-L5 with intervening bone graft at L3-4. Immature bone graft is also present along the right paraspinal region at L3. Moderate bilateral facet osteoarthritis is present at L4-5 and L5-S1. Soft tissue: Unremarkable. No radiopaque foreign bodies are seen. Moderate atherosclerotic calcification of the abdominal aorta is noted. Surgical clips are noted in the right upper quadrant from prior cholecystectomy. IMPRESSION: 1. No acute osseous injuries or abnormalities are noted. Dictated by Kayode Ruth MD @ 06/23/2022 9:44:06 PM Dictated by: Kayode Ruth MD @ 06/23/2022 21:45:07 (Electronic Signature) Discharge Plan Discharge Clinical Impression: Back pain Patient Disposition: Home w/ Parent or Adult Condition: Stable Instructions: Back Pain (ED) Additional Instructions: Home rest please call Dr. Frankel office tomorrow, explained to them what is going on, they may get you to follow-up with them, no evidence of infection on today's examination, your fusion looks solid on x-ray. Prescription for medication sent to your pharmacy. Prescriptions: New oxycodone-acetaminophen [Percocet] 5-325 mg tablet 1 tab PO Q6H PRN (Reason: pain) Qty: 20 0RF No Action metoprolol succinate 50 mg tablet extended release 24 hr 50 mg PO QDAY tramadol 50 mg tablet 50 mg PO BID PRN Atrovent HFA 17 mcg/actuation HFA aerosol inhaler 2 puff inhalation Q8H rosuvastatin 10 mg tablet 10 mg PO DAILY epinephrine 0.3 mg/0.3 mL auto-injector 0.3 mg IM DIRECTED levothyroxine 150 mcg tablet 150 mcg PO DAILY esomeprazole magnesium 40 mg capsule,delayed release(DR/EC) 40 mg PO DAILY@06 hydralazine 25 mg tablet 25 mg PO BID furosemide 40 mg tablet 40 mg PO BID@08,13 losartan 100 mg tablet 100 mg PO DAILY hydrocodone-acetaminophen 5-325 mg tablet 1 - 2 tab PO Q4H flecainide 100 mg tablet 100 mg PO Q12H nitrofurantoin macrocrystal 50 mg capsule 50 mg PO DAILY potassium chloride 20 mEq tablet,ER particles/crystals 20 meq PO 3XD mirtazapine 30 mg tablet 30 mg PO QPM hyoscyamine sulfate 0.125 mg tablet, sublingual 0.125 mg sublingual Q4H PRN (Reason: abdominal pain) pregabalin 150 mg capsule 150 mg PO BID methocarbamol 750 mg tablet 750 mg PO Q6H PRN Eliquis 5 mg tablet 5 mg PO BID sennosides-docusate sodium [Colace 2-In-1] 8.6-50 mg tablet 1 tab-cap PO DAILY Culturelle 10 billion cell capsule 1 cap PO DAILY Follow Up/Referrals: Raiza Salcido MD [Primary Care Provider] - Stand Alone Forms: [facility] Info Instructions
== END 2022-06-23 23:45 | disposition home or self-care (01) ==
PROVIDERS: Emergency Provider Family Medicine; PCP Family Medicine
DX: M54.50 Low back pain, unspecified (principal)
CPT/HCPCS: 36415; 72100; 80048; 80053; 81001; 83605; 84145; 85025; 86140; 87040; 94761; 99284; A9270

== ENCOUNTER 2022-10-18 20:15 | Emergency (ER) | payer MEDICARE, BC, SELFPAY ==
[2022-10-18] VITALS (14 sets, daily range): BP systolic 139–163; BP diastolic 61–84; PULSE 73–90; RESP 16–18; TEMP 36.2; O2SAT 90–94; BMI 28.2
--- NOTE | 2022-10-18 20:59 | CRLHL7_ITS ---
For Patients: As a result of the Cures Act, medical imaging exams and procedure reports are released immediately into your electronic medical record. You may view this report before your referring provider. If you have questions, please contact your health care provider. INDICATION: Abdominal pain, nausea TECHNIQUE: CT Abdomen and pelvis with i.v. contrast. Coronal and sagittal reformats were obtained. CONTRAST: 85 mL Isovue 370 COMPARISON: None FINDINGS: Lower chest: Calcified right lower lobe pulmonary granulomas and right hilar lymph nodes are present from prior granulomatous disease. Linear scarring is seen within the right lung base. Liver: Unremarkable. Spleen: Unremarkable. Pancreas: Unremarkable. Gallbladder: Previous cholecystectomy noted with mild intra and extrahepatic biliary ductal dilatation seen. Kidney: Unremarkable. No kidney or ureteral stones or obstruction seen. Adrenal: Unremarkable. Bowel: Mild wall thickening of the transverse, descending and sigmoid colon are noted. The appendix is normal in appearance and size. Vascular: Unremarkable. Lymph: See above. Peritoneum: Unremarkable. No pneumoperitoneum is seen. No significant ascites is noted. Pelvis: The patient is status post hysterectomy. Soft tissue: Unremarkable. Bone: Posterior spinal fusion of L3-L5 is noted. IMPRESSION: 1. Mild wall thickening of the transverse, descending and sigmoid colon are noted. This may be due to infectious colitis or inflammatory bowel disease. Ischemic colitis can also be considered in the appropriate clinical context. Dictated by Kayode Ruth MD @ 10/18/2022 10:53:00 PM Please note that all CT scans at this facility use dose modulation, iterative reconstruction, and/or weight-based dosing when appropriate to reduce radiation dose to as low as reasonably achievable. Dictated by: Kayode Ruth MD @ 10/18/2022 22:53:02 (Electronically Signed)
--- NOTE | 2022-10-18 21:01 | ED.ABDPAIN ---
HPI - Abdominal Pain General Chief Complaint: Unspecified Complaint, Adult Stated Complaint: Rectal bleed Time Seen by Provider: 10/18/22 20:44 History of Present Illness HPI narrative: Patient is an 82-year-old woman who was having level E lunch at the [employer] today. Had a salad. After her salad patient developed diffuse abdominal pain and did have a small amount of blood-tinged bowel movement which was loose. Patient has a known history of hemorrhoids. She has had no fevers no chills no night sweats no cough no shortness of breath. She did have diarrhea throughout the afternoon and her symptoms are now resolving. She states that she is on blood thinners and she believes that is Eliquis. No other symptoms are noted pain is moderate at this point. Related Data Home Medications Medication Instructions Recorded Confirmed ipratropium bromide 17 2 puff inhalation Q8H 10/18/21 06/23/22 mcg/actuation HFA aerosol inhaler (Atrovent HFA) metoprolol succinate 50 mg 50 mg PO QDAY 10/18/21 06/23/22 tablet,extended release 24 hr tramadol 50 mg tablet 50 mg PO BID PRN 10/18/21 06/23/22 epinephrine 0.3 mg/0.3 mL 0.3 mg IM DIRECTED 12/06/21 06/23/22 injection, auto-injector esomeprazole magnesium 40 mg 40 mg PO DAILY@06 12/06/21 06/23/22 capsule,delayed release furosemide 40 mg tablet 40 mg PO BID@08,13 12/06/21 06/23/22 hydralazine 25 mg tablet 25 mg PO BID 12/06/21 06/23/22 levothyroxine 150 mcg tablet 150 mcg PO DAILY 12/06/21 06/23/22 losartan 100 mg tablet 100 mg PO DAILY 12/06/21 06/23/22 rosuvastatin 10 mg tablet 10 mg PO DAILY 12/06/21 06/23/22 Lactobacillus rhamnosus GG 10 1 cap PO DAILY 06/23/22 06/23/22 billion cell capsule (Culturelle) apixaban 5 mg tablet (Eliquis) 5 mg PO BID 06/23/22 06/23/22 flecainide 100 mg tablet 100 mg PO Q12H 06/23/22 06/23/22 hydrocodone 5 mg-acetaminophen 325 1 - 2 tab PO Q4H 06/23/22 06/23/22 mg tablet hyoscyamine sulfate 0.125 mg 0.125 mg sublingual Q4H PRN 06/23/22 06/23/22 sublingual tablet abdominal pain methocarbamol 750 mg tablet 750 mg PO Q6H PRN 06/23/22 06/23/22 mirtazapine 30 mg tablet 30 mg PO QPM 06/23/22 06/23/22 nitrofurantoin macrocrystal 50 mg 50 mg PO DAILY 06/23/22 06/23/22 capsule potassium chloride 20 mEq 20 meq PO 3XD 06/23/22 06/23/22 tablet,extended release(part/cryst) pregabalin 150 mg capsule 150 mg PO BID 06/23/22 06/23/22 sennosides 8.6 mg-docusate sodium 1 tab-cap PO DAILY 06/23/22 06/23/22 50 mg tablet (Colace 2-In-1) Previous Rx's Medication Instructions Recorded oxycodone-acetaminophen 5 mg-325 1 tab PO Q6H PRN pain #20 tabs 06/23/22 mg tablet (Percocet) Allergies Allergy/AdvReac Type Severity Reaction Status Date / Time amlodipine Allergy Intermediate Edema Verified 06/23/22 23:28 codeine Allergy Intermediate Rash Verified 06/23/22 23:28 procaine Allergy Intermediate Swelling, Verified 06/23/22 23:28 rash terbinafine Allergy Intermediate Rash, Verified 06/23/22 23:28 nausea, vomiting trazodone Allergy Intermediate Unable to Verified 06/23/22 23:28 recall trospium Allergy Intermediate Diarrhea Verified 06/23/22 23:28 diazepam Allergy Mild Cardiac Verified 06/23/22 23:28 arrest midazolam Allergy Mild Cardiac Verified 06/23/22 23:28 arrest NSAIDS (Non-Steroidal Allergy Mild Unknown Verified 06/23/22 23:28 Anti-Inflamma penicillin V Allergy Mild Verified 06/23/22 23:28 propafenone Allergy Mild GI upset Verified 06/23/22 23:28 zolpidem Allergy Mild Unknown Verified 06/23/22 23:28 aluminum Allergy Unknown Verified 06/23/22 23:28 ampicillin Allergy Unknown Hives Verified 06/23/22 23:28 atorvastatin Allergy Unknown Myalgia Verified 06/23/22 23:28 azithromycin Allergy Unknown Diarrhea Verified 06/23/22 23:28 bupivacaine Allergy Unknown Verified 06/23/22 23:28 ciprofloxacin Allergy Unknown Verified 06/23/22 23:28 fentanyl Allergy Unknown Eye Verified 06/23/22 23:28 swelling hydromorphone Allergy Unknown Hives Verified 06/23/22 23:28 meperidine Allergy Unknown Verified 06/23/22 23:28 methylprednisolone Allergy Unknown Verified 06/23/22 23:28 morphine Allergy Unknown Hives Verified 06/23/22 23:28 promethazine Allergy Unknown Nausea/vomi Verified 06/23/22 23:28 ting simvastatin Allergy Unknown Diarrhea Verified 06/23/22 23:28 hydrocodone AdvReac Intermediate GI Upset Verified 06/23/22 23:28 sumatriptan AdvReac Intermediate Ineffective Verified 06/23/22 23:28 Ketorolac tromethamine Allergy Severe Internal Uncoded 11/14/21 13:37 bleeding NARCOTICS Allergy Severe Cardiac Uncoded 11/14/21 13:37 arrest Opioid Analgesics Allergy Mild Hives Uncoded 11/14/21 13:37 All narcotics Allergy Unknown Uncoded 11/14/21 13:37 Beef Allergy Unknown Uncoded 11/14/21 13:37 Influenza A virus Allergy Unknown Fever, Uncoded 11/14/21 13:37 nausea/vomiting Pork Allergy Unknown Uncoded 11/14/21 13:37 Review of Systems Status of ROS Reports: 10 or more systems reviewed and unremarkable except as noted in History and below [facility] Medical History Paroxysmal atrial fibrillation ?I48.0 - Paroxysmal atrial fibrillation (ICD-10) Hypothyroidism ?E03.9 - Hypothyroidism, unspecified (ICD-10) Depression ?F32.A - Depression, unspecified (ICD-10) Hypopotassemia ?E87.6 - Hypokalemia (ICD-10) GERD (gastroesophageal reflux disease) ?K21.9 - Gastro-esophageal reflux disease without esophagitis (ICD-10) Hypertension ?I10 - Essential (primary) hypertension (ICD-10) Malignant neoplasm of thyroid gland ?C73 - Malignant neoplasm of thyroid gland (ICD-10) Migraines ?G43.909 - Migraine, unspecified, not intractable, without status migrainosus (ICD-10) Edema ?R60.9 - Edema, unspecified (ICD-10) Lumbar radiculopathy ?M54.16 - Radiculopathy, lumbar region (ICD-10) Spinal stenosis ?M48.00 - Spinal stenosis, site unspecified (ICD-10) Surgical History H/O thyroidectomy ?E89.0 - Postprocedural hypothyroidism (ICD-10) H/O knee surgery ?Z98.890 - Other specified postprocedural states (ICD-10) H/O: hysterectomy ?Z90.710 - Acquired absence of both cervix and uterus (ICD-10) Social History Smoking Status: Former smoker Do you use any of these nicotine containing products: None Second hand tobacco smoke exposure: No How often do you have a drink containing alcohol: monthly or less How many standard drinks containing alcohol do you have on a typical day: 1 or 2 How often do you have six or more drinks on one occasion: Never AUDIT-C Alcohol total score: 1 Non-prescribed substance use: denies use service: No Exam Narrative: Exam Narrative: EXAM GENERAL: Patient appears comfortable and well. EYES: No scleral icterus. LYMPH: No supraclavicular or cervical lymphadenopathy. SKIN: Visible skin seen during exam normal or with benign process only. EXT: No dependent lower extremity pedal edema. HEART: Regular rate and rhythm with no murmurs, rubs, or gallops. LUNGS: Clear to auscultation bilaterally with no crackles or wheezes. ABD: Soft, non tender, non distended. PSYCH: Good eye contact, speech is not pressured. Const: Vital Signs, click to edit/add: Vital Signs - 24 hr 10/18/22 20:46 10/18/22 21:26 10/18/22 21:30 Temperature 97.2 F L Pulse Rate 78 75 Pulse Rate [Pulse Oximeter] 90 Respiratory Rate 18 Blood Pressure Blood Pressure [Ri ght Upper Arm] 145/80 H Pulse Oximetry 93 94 94 Oxygen Delivery Me thod Room Air 10/18/22 21:32 Temperature Pulse Rate 75 Pulse Rate [Pulse Oximeter] Respiratory Rate Blood Pressure 140/69 H Blood Pressure [Ri ght Upper Arm] Pulse Oximetry 94 Oxygen Delivery Me thod Course Course Hospital Course: Patient seen examined. Stool for occult blood collected. Rectal exam was grossly negative for blood. Hemorrhoids noted. CBC comprehensive metabolic panel amylase urinalysis CT of the abdomen pelvis pending. Vital Signs Vital signs: Initial Vital Signs Temperature 97.2 F L 10/18/22 20:46 Temperature Source Temporal Artery Scan 10/18/22 20:46 Pulse Rate 90 10/18/22 20:46 Respiratory Rate 18 10/18/22 20:46 Blood Pressure 145/80 H 10/18/22 20:46 Blood Pressure Mean 101 10/18/22 20:46 Pulse Oximetry 93 10/18/22 20:46 Oxygen Delivery Method Room Air 10/18/22 20:46 Vital Signs Temperature 97.2 F L 10/18/22 20:46 Pulse Rate 90 10/18/22 20:46 Respiratory Rate 18 10/18/22 20:46 Blood Pressure 145/80 H 10/18/22 20:46 Pulse Oximetry 93 10/18/22 20:46 Oxygen Delivery Method Room Air 10/18/22 20:46 Temperature 97.2 F L 10/18/22 20:46 Pulse Rate 75 10/18/22 21:32 Respiratory Rate 18 10/18/22 20:46 Blood Pressure 140/69 H 10/18/22 21:32 Pulse Oximetry 94 10/18/22 21:32 Oxygen Delivery Method Room Air 10/18/22 20:46 MDM - Abdominal Pain MDM Narrative Medical decision making narrative: Patient presents after developing abdominal pain diarrhea after lunch today. She does report small amount of bright red blood per rectum. Guaiac is negative in the emergency room. Labs reassuring. CT of the abdomen pelvis shows mild bowel wall thickening consistent with gastroenteritis. Patient is feeling better this time she is ready for discharge with outpatient follow-up. Differential Diagnosis Differential diagnosis: Likely abdominal pain, acute appendicitis, calculus of kidney, constipation, diverticulitis, endometriosis, gastroenteritis, pancreatitis and small bowel obstruction Lab Data Labs: Lab Results 10/18/22 10/18/22 10/18/22 Range/Units 21:09 21:15 21:30 WBC 6.14 (4.50-11.00) K/uL RBC 4.83 (4.00-5.20) m/uL Hgb 13.8 (12.0-16.0) gm/dL Hct 43.3 (33.0-51.0) % MCV 90 (80-100) fL MCH 29 (26-34) pg MCHC 32 (32-36) gm/dL RDW Coeff of Hernán 13.7 (11.5-15.5) % Plt Count 244 (140-440) K/uL Neut % (Auto) 55.4 (42.0-72.0) % Lymph % (Auto) 34.2 (20-44) % Sandoval % (Auto) 9.3 (0.0-11.0) % Eos % (Auto) 0.7 (0.0-7.0) % Baso % (Auto) 0.2 (0.0-3.0) % Neut # (Auto) 3.41 (1.7-7.0) K/uL Lymph # (Auto) 2.10 (0.90-2.90) K/uL Sandoval # (Auto) 0.60 (0.00-0.90) K/UL Eos # (Auto) 0.04 (0.00-0.50) K/uL Baso # (Auto) 0.01 (0.00-0.30) K/uL Abs Immat Gran (auto) 0.01 (0.00-0.30) K/uL Imm/Tot Granulo (auto) 0.2 % Sodium 140 (135-149) mmol/L Potassium 3.7 (3.6-5.1) mmol/L Chloride 97 (96-114) mmol/L Carbon Dioxide 33 H (20-32) mmol/L BUN 23 (7-30) mg/dL Creatinine 0.9 (0.5-1.5) mg/dL Estimated Creat Clear 41.30 Estimated GFR 64 ml/min Glucose 120 H (60-115) mg/dL Calcium 9.4 (8.4-10.6) mg/dL Total Bilirubin 0.5 (0.1-1.5) mg/dL AST 24 (12-35) U/L ALT 18 (4-35) U/L Alkaline Phosphatase 66 (40-150) U/L Total Protein 7.7 (6.0-8.3) g/dL Albumin 4.6 (3.3-5.0) g/dL Amylase 114 H (18-89) U/L Urine Color Yellow (Yellow) Urine Appearance Clear (Clear) Urine pH 5.5 (5.0-8.5) Ur Specific [place] 1.015 (1.000-1.030) Urine Protein Negative (Negative) Urine Glucose (UA) Negative (Negative) Urine Ketones Negative (Negative) Urine Blood Negative (Negative) Urine Nitrite Negative (Negative) Urine Bilirubin Negative (Negative) Urine Urobilinogen 0.2 (0.2-1.0) Ur Leukocyte Esterase Negative (Negative) Stool Occult Blood Negative (Negative) Discharge Plan Discharge Clinical Impression: Food poisoning Patient Disposition: Home, Self-Care Condition: Stable Instructions: Food Poisoning (ED) Additional Instructions: [place] diet Advance as tolerated Follow up with your doctor as needed Discharge Diet: Low Fat/Low Cholesterol Prescriptions: No Action metoprolol succinate 50 mg tablet extended release 24 hr 50 mg PO QDAY tramadol 50 mg tablet 50 mg PO BID PRN Atrovent HFA 17 mcg/actuation HFA aerosol inhaler 2 puff inhalation Q8H rosuvastatin 10 mg tablet 10 mg PO DAILY epinephrine 0.3 mg/0.3 mL auto-injector 0.3 mg IM DIRECTED levothyroxine 150 mcg tablet 150 mcg PO DAILY esomeprazole magnesium 40 mg capsule,delayed release(DR/EC) 40 mg PO DAILY@06 hydralazine 25 mg tablet 25 mg PO BID furosemide 40 mg tablet 40 mg PO BID@08,13 losartan 100 mg tablet 100 mg PO DAILY hydrocodone-acetaminophen 5-325 mg tablet 1 - 2 tab PO Q4H flecainide 100 mg tablet 100 mg PO Q12H nitrofurantoin macrocrystal 50 mg capsule 50 mg PO DAILY potassium chloride 20 mEq tablet,ER particles/crystals 20 meq PO 3XD mirtazapine 30 mg tablet 30 mg PO QPM hyoscyamine sulfate 0.125 mg tablet, sublingual 0.125 mg sublingual Q4H PRN (Reason: abdominal pain) pregabalin 150 mg capsule 150 mg PO BID methocarbamol 750 mg tablet 750 mg PO Q6H PRN Eliquis 5 mg tablet 5 mg PO BID sennosides-docusate sodium [Colace 2-In-1] 8.6-50 mg tablet 1 tab-cap PO DAILY Culturelle 10 billion cell capsule 1 cap PO DAILY oxycodone-acetaminophen [Percocet] 5-325 mg tablet 1 tab PO Q6H PRN (Reason: pain) Qty: 20 0RF Follow Up/Referrals: Raiza Salcido MD [Primary Care Provider] - Stand Alone Forms: [employer] Info Instructions
[2022-10-18 21:23] LABS: Appearance Urine Clear (Clear); Bilirubin Urine Negative (Negative); Blood Urine Negative (Negative); Color Urine Yellow (Yellow); Glucose Urine Negative (Negative); Ketones Urine Negative (Negative); Leukocyte Esterase Urine Negative (Negative); Nitrite Urine Negative (Negative); Protein Urine Negative (Negative); Specific Gravity Urine 1.015 (1.000-1.030); Urobilinogen Urine 0.2 (0.2-1.0); pH Urine 5.5 (5.0-8.5)
[2022-10-18 21:47] LABS: Basophils Absolute Auto 0.01 K/uL (0.00-0.30); Basophils Percent Auto 0.2 % (0.0-3.0); Eosinophils Absolute Auto 0.04 K/uL (0.00-0.50); Eosinophils Percent Auto 0.7 % (0.0-7.0); Hematocrit 43.3 % (33.0-51.0); Hemoglobin* 13.8 gm/dL (12.0-16.0); Immature Granulocytes Abs Auto 0.01 K/uL (0.00-0.30); Immature Granulocytes Pct Auto 0.2 %; Lymphocytes Percent Auto 34.2 % (20-44); Mean Corpuscular HGB Conc 32 gm/dL (32-36); Mean Corpuscular Hemoglobin 29 pg (26-34); Mean Corpuscular Volume 90 fL (80-100); Monocytes Percent Auto 9.3 % (0.0-11.0); Neutrophils Absolute Auto 3.41 K/uL (1.7-7.0); Neutrophils Percent Auto 55.4 % (42.0-72.0); Platelet Count* 244 K/uL (140-440); RDW Coefficient of Variation % 13.7 % (11.5-15.5); Red Blood Count 4.83 m/uL (4.00-5.20); White Blood Count* 6.14 K/uL (4.50-11.00)
[2022-10-18 21:48] LABS: Slide Review Reflex No
[2022-10-18 21:50] LABS: Albumin* 4.6 g/dL (3.3-5.0)
[2022-10-18 21:51] LABS: Chloride* 97 mmol/L (96-114); Potassium* 3.7 mmol/L (3.6-5.1); Sodium* 140 mmol/L (135-149)
[2022-10-18 21:53] LABS: Amylase* 114 U/L (18-89); Aspartate Amino Transferase* 24 U/L (12-35); Bilirubin Total* 0.5 mg/dL (0.1-1.5); Carbon Dioxide* 33 mmol/L (20-32); Creatinine* 0.9 mg/dL (0.5-1.5); Estimated Glomerular Filt Rate 64 ml/min; Total Protein* 7.7 g/dL (6.0-8.3)
[2022-10-18 21:54] LABS: Fecal Occult Blood* Negative (Negative)
[2022-10-18 21:54] LABS: Alanine Aminotransferase* 18 U/L (4-35); Alkaline Phosphatase* 66 U/L (40-150); Blood Urea Nitrogen* 23 mg/dL (7-30); Calcium* 9.4 mg/dL (8.4-10.6); Glucose* 120 mg/dL (60-115)
== END 2022-10-18 23:11 | disposition home or self-care (01) ==
PROVIDERS: Emergency Provider Internal Medicine; PCP Family Medicine
DX: K62.5 Hemorrhage of anus and rectum (principal); A05.9 Bacterial foodborne intoxication, unspecified
CPT/HCPCS: 36415; 74177; 80053; 81003; 82150; 82270; 85025; 99283; 99284; Q9967

== ENCOUNTER 2022-11-05 12:05 | Outpatient (CLI) | payer MEDICARE, BC, SELFPAY | END 2022-11-05 12:06 | disposition home or self-care (01) | LOC: INJ CL 12:06 | PROVIDERS: PCP Family Medicine; Visit Provider Family Medicine | DX: M54.16 Radiculopathy, lumbar region (principal); M51.36 Other intervertebral disc degeneration, lumbar region | CPT/HCPCS: 64483; J1100; Q9966 ==

== ENCOUNTER 2023-03-04 07:24 | Outpatient (CLI) | payer MEDICARE, BC, SELFPAY | END 2023-03-04 07:25 | disposition home or self-care (01) | LOC: INJ CL 07:26 | PROVIDERS: PCP Family Medicine; Visit Provider Family Medicine | DX: M54.16 Radiculopathy, lumbar region (principal) | CPT/HCPCS: 64483; J1100; Q9966 ==

== ENCOUNTER 2023-06-20 16:14 | Emergency (ER) | payer MEDICARE, BC, SELFPAY ==
[2023-06-20 16:23] VITALS: BP 148/71; PULSE 83; RESP 16; TEMP 36.4; O2SAT 94; BMI 29.1
[2023-06-20 17:05] LABS: Basophils Percent Auto 0.5 % (0.0-3.0); Eosinophils Percent Auto 0.7 % (0.0-7.0); Hematocrit 42.9 % (33.0-51.0); Hemoglobin* 14.2 gm/dL (12.0-16.0); Immature Granulocytes Pct Auto 0.2 %; Lymphocytes Percent Auto 35.1 % (20-44); Mean Corpuscular HGB Conc 33 gm/dL (32-36); Mean Corpuscular Hemoglobin 30 pg (26-34); Mean Corpuscular Volume 92 fL (80-100); Monocytes Percent Auto 9.9 % (0.0-11.0); Neutrophils Percent Auto 53.6 % (42.0-72.0); Platelet Count* 250 K/uL (140-440); RDW Coefficient of Variation % 12.5 % (11.5-15.5); Red Blood Count 4.68 m/uL (4.00-5.20); White Blood Count* 4.25 K/uL (4.50-11.00)
[2023-06-20 17:15] LABS: Slide Review Reflex No
[2023-06-20] MEDS: ONDANSETRON 2 MG/ML inj 4 MG IVP (17:17)
[2023-06-20 17:18] LABS: Albumin* 4.8 g/dL (3.3-5.0); Chloride* 103 mmol/L (96-114); Potassium* 3.5 mmol/L (3.6-5.1); Sodium* 141 mmol/L (135-149)
[2023-06-20] MEDS: 0.9 % SODIUM CHLORIDE 1000 ml 1,000 ML IV (17:18)
[2023-06-20 17:20] LABS: Creatinine* 0.7 mg/dL (0.5-1.5); Estimated Glomerular Filt Rate 87 ml/min; Prothrombin Time 14.9 Seconds
--- NOTE | 2023-06-20 17:20 | ED_ITS ---
HPI - General Adult General Date Seen: 06/20/23 Chief complaint: Diarrhea Stated complaint: dehydrated Time Seen by Provider: 06/20/23 16:17 Source: patient Mode of arrival: ambulatory Limitations: no limitations History of Present Illness HPI narrative: Patient is an 82-year-old woman who is here today in the ER with her Maxim. She says for the past 6 days she has been having vomiting and diarrhea, the vomiting is largely abated but she continues to have loose, nonbloody stools. She has not had significant abdominal pain. No fevers. She feels that symptoms were related to too much chlorine in the pool at the [facility] where she went swimming a week ago. She denies recent antibiotics, she denies any recent travel. No one else at home has been sick. She has been trying to keep up with fluids but says she continues to feel nauseated and after she drinks a little that usually her stomach gets upset and she has to stop. She has not really been able to eat due to nausea. She tried 2 Imodium and says that that did not relieve her symptoms. Related Data Home Medications Medication Instructions Recorded Confirmed ipratropium bromide 17 2 puff inhalation Q8H 10/18/21 06/23/22 mcg/actuation HFA aerosol inhaler (Atrovent HFA) metoprolol succinate 50 mg 50 mg PO QDAY 10/18/21 06/23/22 tablet,extended release 24 hr tramadol 50 mg tablet 50 mg PO BID PRN 10/18/21 06/23/22 epinephrine 0.3 mg/0.3 mL 0.3 mg IM DIRECTED 12/06/21 06/23/22 injection, auto-injector esomeprazole magnesium 40 mg 40 mg PO DAILY@06 12/06/21 06/23/22 capsule,delayed release furosemide 40 mg tablet 40 mg PO BID@08,13 12/06/21 06/23/22 hydralazine 25 mg tablet 25 mg PO BID 12/06/21 06/23/22 levothyroxine 150 mcg tablet 150 mcg PO DAILY 12/06/21 06/23/22 losartan 100 mg tablet 100 mg PO DAILY 12/06/21 06/23/22 rosuvastatin 10 mg tablet 10 mg PO DAILY 12/06/21 06/23/22 Lactobacillus rhamnosus GG 10 1 cap PO DAILY 06/23/22 06/23/22 billion cell capsule (Culturelle) apixaban 5 mg tablet (Eliquis) 5 mg PO BID 06/23/22 06/23/22 flecainide 100 mg tablet 100 mg PO Q12H 06/23/22 06/23/22 hyoscyamine sulfate 0.125 mg 0.125 mg sublingual Q4H PRN 06/23/22 06/23/22 sublingual tablet abdominal pain methocarbamol 750 mg tablet 750 mg PO Q6H PRN 06/23/22 06/23/22 mirtazapine 30 mg tablet 30 mg PO QPM 06/23/22 06/23/22 nitrofurantoin macrocrystal 50 mg 50 mg PO DAILY 06/23/22 06/23/22 capsule potassium chloride 20 mEq 20 meq PO 3XD 06/23/22 06/23/22 tablet,extended release(part/cryst) pregabalin 150 mg capsule 150 mg PO BID 06/23/22 06/23/22 sennosides 8.6 mg-docusate sodium 1 tab-cap PO DAILY 06/23/22 06/23/22 50 mg tablet (Colace 2-In-1) Previous Rx's Medication Instructions Recorded oxycodone-acetaminophen 5 mg-325 1 tab PO Q6H PRN pain #20 tabs 06/23/22 mg tablet (Percocet) Allergies Allergy/AdvReac Type Severity Reaction Status Date / Time amlodipine Allergy Intermediate Edema Verified 03/04/23 08:32 codeine Allergy Intermediate Rash Verified 03/04/23 08:32 procaine Allergy Intermediate Swelling, Verified 03/04/23 08:32 rash terbinafine Allergy Intermediate Rash, Verified 03/04/23 08:32 nausea, vomiting trazodone Allergy Intermediate Unable to Verified 03/04/23 08:32 recall trospium Allergy Intermediate Diarrhea Verified 03/04/23 08:32 diazepam Allergy Mild Cardiac Verified 03/04/23 08:32 arrest midazolam Allergy Mild Cardiac Verified 03/04/23 08:32 arrest NSAIDS (Non-Steroidal Allergy Mild Unknown Verified 03/04/23 08:32 Anti-Inflamma penicillin V Allergy Mild Verified 03/04/23 08:32 propafenone Allergy Mild GI upset Verified 03/04/23 08:32 zolpidem Allergy Mild Unknown Verified 03/04/23 08:32 aluminum Allergy Unknown Verified 03/04/23 08:32 ampicillin Allergy Unknown Hives Verified 03/04/23 08:32 atorvastatin Allergy Unknown Myalgia Verified 03/04/23 08:32 azithromycin Allergy Unknown Diarrhea Verified 03/04/23 08:32 bupivacaine Allergy Unknown Verified 06/23/22 23:28 ciprofloxacin Allergy Unknown Verified 06/23/22 23:28 fentanyl Allergy Unknown Eye Verified 06/23/22 23:28 swelling hydromorphone Allergy Unknown Hives Verified 06/23/22 23:28 meperidine Allergy Unknown Verified 03/04/23 08:32 methylprednisolone Allergy Unknown Verified 03/04/23 08:32 morphine Allergy Unknown Hives Verified 03/04/23 08:32 promethazine Allergy Unknown Nausea/vomi Verified 03/04/23 08:32 ting simvastatin Allergy Unknown Diarrhea Verified 03/04/23 08:32 hydrocodone AdvReac Intermediate GI Upset Verified 03/04/23 08:32 sumatriptan AdvReac Intermediate Ineffective Verified 03/04/23 08:32 Ketorolac tromethamine Allergy Severe Internal Uncoded 03/04/23 08:32 bleeding NARCOTICS Allergy Severe Cardiac Uncoded 03/04/23 08:32 arrest Opioid Analgesics Allergy Mild Hives Uncoded 03/04/23 08:32 All narcotics Allergy Unknown Uncoded 03/04/23 08:32 Beef Allergy Unknown Uncoded 03/04/23 08:32 Influenza A virus Allergy Unknown Fever, Uncoded 03/04/23 08:32 nausea/vomiting Pork Allergy Unknown Uncoded 03/04/23 08:32 Review of Systems Status of ROS: Reports: 6 or more systems reviewed and unremarkable except as noted in History and below [facility] Medical History Paroxysmal atrial fibrillation ?I48.0 - Paroxysmal atrial fibrillation (ICD-10) Hypothyroidism ?E03.9 - Hypothyroidism, unspecified (ICD-10) Depression ?F32.A - Depression, unspecified (ICD-10) Hypopotassemia ?E87.6 - Hypokalemia (ICD-10) GERD (gastroesophageal reflux disease) ?K21.9 - Gastro-esophageal reflux disease without esophagitis (ICD-10) Hypertension ?I10 - Essential (primary) hypertension (ICD-10) Malignant neoplasm of thyroid gland ?C73 - Malignant neoplasm of thyroid gland (ICD-10) Migraines ?G43.909 - Migraine, unspecified, not intractable, without status migrainosus (ICD-10) Edema ?R60.9 - Edema, unspecified (ICD-10) Lumbar radiculopathy ?M54.16 - Radiculopathy, lumbar region (ICD-10) Spinal stenosis ?M48.00 - Spinal stenosis, site unspecified (ICD-10) Surgical History H/O thyroidectomy ?E89.0 - Postprocedural hypothyroidism (ICD-10) H/O knee surgery ?Z98.890 - Other specified postprocedural states (ICD-10) H/O: hysterectomy ?Z90.710 - Acquired absence of both cervix and uterus (ICD-10) Social History Smoking Status: Former smoker Do you use any of these nicotine containing products: None Second hand tobacco smoke exposure: No How often do you have a drink containing alcohol: monthly or less How many standard drinks containing alcohol do you have on a typical day: 1 or 2 How often do you have six or more drinks on one occasion: Never AUDIT-C Alcohol total score: 1 Non-prescribed substance use: denies use service: No Exam Narrative: Exam Narrative: Vital signs as noted above. In general, an alert, well-appearing patient. Head: Normocephalic, atraumatic. Eyes: Pupils are equal reactive. Extraocular movements are full. Conjunctivae are normal. ENT: Mucous membranes are moist. Throat is normal. Neck: Supple without lymphadenopathy. Heart: Regular rate and rhythm. No murmur or rub. Lungs: Clear bilaterally. No increased work of breathing, crackles or wheezes. Abdomen: Soft and nontender. Protuberant. Extremities: Well perfused. No edema. No calf tenderness. Pulses intact. Neurologic: Patient is alert and oriented to person and place. Speech is fluent. Face is symmetric. Moves all extremities equally. Affect: Normal. Skin: Warm and dry. Well perfused. Const: Vital Signs, click to edit/add: Vital Signs - 24 hr 06/20/23 16:23 Temperature 97.5 F L Pulse Rate [Pulse Oximeter] 83 Respiratory Rate 16 Blood Pressure [Ri ght Upper Arm] 148/71 H Pulse Oximetry 94 Oxygen Delivery Me thod Room Air Documenting provider has reviewed patient's vital signs: yes Course Course ED Course: Placed an IV here, checked labs. These are all reassuring, potassium is 3.5, sodium is normal. CRP is less than 0.5. She feels much improved after Zofran and fluids, would like some Zofran for home. I did order C diff, she has not had diarrhea since arriving here. If she continues having symptoms, this could be done as an outpatient. Abdominal exam is benign, no red flag symptoms. Continue supportive care at home, will prescribe some Zofran, she has an appointment already in the clinic for beginning of next week. Return for worsening such as severe abdominal pain, fevers, vomiting despite treatment or bloody stools. Vital Signs Vital signs: Initial Vital Signs Temperature 97.5 F L 06/20/23 16:23 Temperature Source Temporal Artery Scan 06/20/23 16:23 Pulse Rate 83 06/20/23 16:23 Pulse Rhythm Regular 06/20/23 16:23 Respiratory Rate 16 06/20/23 16:23 Blood Pressure 148/71 H 06/20/23 16:23 Blood Pressure Mean 96 06/20/23 16:23 Blood Pressure Position Sitting 06/20/23 16:23 Pulse Oximetry 94 06/20/23 16:23 Oxygen Delivery Method Room Air 06/20/23 16:23 Vital Signs Temperature 97.5 F L 06/20/23 16:23 Pulse Rate 83 06/20/23 16:23 Respiratory Rate 16 06/20/23 16:23 Blood Pressure 148/71 H 06/20/23 16:23 Pulse Oximetry 94 06/20/23 16:23 Oxygen Delivery Method Room Air 06/20/23 16:23 Temperature 97.5 F L 06/20/23 16:23 Pulse Rate 83 06/20/23 16:23 Respiratory Rate 16 06/20/23 16:23 Blood Pressure 148/71 H 06/20/23 16:23 Pulse Oximetry 94 06/20/23 16:23 Oxygen Delivery Method Room Air 06/20/23 16:23 Medications Administered Medications: Discontinued Medications Generic Name Dose Route Start Last Admin Trade Name Freq PRN Reason Stop Dose Admin Sodium Chloride 1,000 mls @ 1,000 mls/hr 06/20/23 16:45 06/20/23 17:18 0.9 % Sodium Chloride 1000 Ml IV 06/20/23 17:44 1,000 mls/hr .Q1H AKASH Administration Ondansetron HCl 4 mg 06/20/23 16:43 06/20/23 17:17 Ondansetron 2 Mg/Ml Inj IVP 06/20/23 16:44 4 mg ONCE ONE Administration Medical Decision Making Lab Data Labs: Lab Results 06/20/23 Range/Units 16:54 WBC 4.25 L (4.50-11.00) K/uL RBC 4.68 (4.00-5.20) m/uL Hgb 14.2 (12.0-16.0) gm/dL Hct 42.9 (33.0-51.0) % MCV 92 (80-100) fL MCH 30 (26-34) pg MCHC 33 (32-36) gm/dL RDW Coeff of Hernán 12.5 (11.5-15.5) % Plt Count 250 (140-440) K/uL Neut % (Auto) 53.6 (42.0-72.0) % Lymph % (Auto) 35.1 (20-44) % Lane % (Auto) 9.9 (0.0-11.0) % Eos % (Auto) 0.7 (0.0-7.0) % Baso % (Auto) 0.5 (0.0-3.0) % Neut # (Auto) 2.30 (1.7-7.0) K/uL Lymph # (Auto) 1.50 (0.90-2.90) K/uL Lane # (Auto) 0.40 (0.00-0.90) K/UL Eos # (Auto) 0.00 (0.00-0.50) K/uL Baso # (Auto) 0.00 (0.00-0.30) K/uL Abs Immat Gran (auto) 0.00 (0.00-0.30) K/uL Imm/Tot Granulo (auto) 0.2 % INR 1.10 (0.91-1.10) Sodium 141 (135-149) mmol/L Potassium 3.5 L (3.6-5.1) mmol/L Chloride 103 (96-114) mmol/L Carbon Dioxide 28 (20-32) mmol/L Anion Gap 10 (7-15) mEq/L BUN 17 (7-30) mg/dL Creatinine 0.7 (0.5-1.5) mg/dL Estimated Creat Clear 41.30 Estimated GFR 87 ml/min Glucose 158 H (60-115) mg/dL Calcium 9.8 (8.4-10.6) mg/dL Total Bilirubin 0.4 (0.1-1.5) mg/dL Direct Bilirubin 0.2 (0.0-0.5) mg/dL AST 24 (12-35) U/L ALT 41 H (4-35) U/L Alkaline Phosphatase 74 (40-150) U/L C-Reactive Protein < 0.5 L (0.5-1.0) mg/dL Total Protein 7.9 (6.0-8.3) g/dL Albumin 4.8 (3.3-5.0) g/dL Discharge Plan Discharge Clinical Impression: Diarrhea Patient Disposition: Home, Self-Care Condition: Improved Instructions: Acute Diarrhea (ED) Additional Instructions: Continue to work on hydration at home. Zofran if needed for nausea. Follow-up with Dr. Salcido next week as planned. Return to the ER at any time if needed for severe symptoms such as high fevers, bloody stools, severe abdominal pain or uncontrolled vomiting. Prescriptions: No Action metoprolol succinate 50 mg tablet extended release 24 hr 50 mg PO QDAY tramadol 50 mg tablet 50 mg PO BID PRN Atrovent HFA 17 mcg/actuation HFA aerosol inhaler 2 puff inhalation Q8H rosuvastatin 10 mg tablet 10 mg PO DAILY epinephrine 0.3 mg/0.3 mL auto-injector 0.3 mg IM DIRECTED levothyroxine 150 mcg tablet 150 mcg PO DAILY esomeprazole magnesium 40 mg capsule,delayed release(DR/EC) 40 mg PO DAILY@06 hydralazine 25 mg tablet 25 mg PO BID furosemide 40 mg tablet 40 mg PO BID@08,13 losartan 100 mg tablet 100 mg PO DAILY flecainide 100 mg tablet 100 mg PO Q12H nitrofurantoin macrocrystal 50 mg capsule 50 mg PO DAILY potassium chloride 20 mEq tablet,ER particles/crystals 20 meq PO 3XD mirtazapine 30 mg tablet 30 mg PO QPM hyoscyamine sulfate 0.125 mg tablet, sublingual 0.125 mg sublingual Q4H PRN (Reason: abdominal pain) pregabalin 150 mg capsule 150 mg PO BID methocarbamol 750 mg tablet 750 mg PO Q6H PRN Eliquis 5 mg tablet 5 mg PO BID sennosides-docusate sodium [Colace 2-In-1] 8.6-50 mg tablet 1 tab-cap PO DAILY Culturelle 10 billion cell capsule 1 cap PO DAILY oxycodone-acetaminophen [Percocet] 5-325 mg tablet 1 tab PO Q6H PRN (Reason: pain) Qty: 20 0RF Follow Up/Referrals: Raiza Salcido MD [Primary Care Provider] - Stand Alone Forms: [facility] Info Instructions
[2023-06-20 17:21] LABS: Alanine Aminotransferase* 41 U/L (4-35); Alkaline Phosphatase* 74 U/L (40-150); Anion Gap 10 mEq/L (7-15); Aspartate Amino Transferase* 24 U/L (12-35); Bilirubin Direct* 0.2 mg/dL (0.0-0.5); Bilirubin Total* 0.4 mg/dL (0.1-1.5); Blood Urea Nitrogen* 17 mg/dL (7-30); Carbon Dioxide* 28 mmol/L (20-32); Glucose* 158 mg/dL (60-115); Total Protein* 7.9 g/dL (6.0-8.3)
[2023-06-20 17:22] LABS: Calcium* 9.8 mg/dL (8.4-10.6)
[2023-06-20 17:30] LABS: C Reactive Protein* < 0.5 mg/dL (0.5-1.0)
== END 2023-06-20 18:17 | disposition home or self-care (01) ==
PROVIDERS: Emergency Provider Emergency Medicine; PCP Family Medicine
DX: R19.7 Diarrhea, unspecified (principal)
CPT/HCPCS: 36415; 80048; 80076; 85025; 85610; 86140; 87493; 96374; 99284; J2405; J7030

== ENCOUNTER 2023-10-30 13:42 | Outpatient (REF) | payer MEDICARE, BC, SELFPAY ==
--- OUTSIDE RECORDS SUMMARY | 2023-10-30 13:49 | XMS_ITS | Encounter Summary ---
Author Organization [facility] Address [address] [place] [address] Phone Care Team Providers Care Wellness Instructor Name Role Phone Percy Lyman MD Primary Care Provider [phone] Reason for Visit * Reason Comments Follow-up 4month follow up Encounter Details Date Type Department Care Team (Late st Contact Info) Description 08/27/2023 3:00 PM CDT [facility] [address] [place] [address] Provider, [place] [address] Pravin Christina MBBS [address] [place] [address] Proximal muscle weakness (Primary Dx); Parkinsonism, unspecified Parkinsonism type (CMS) Discharge Disposition: Discharged to home or self care (routine discharge) Social History Tobacco Use Types Packs/Day Years Used Date Smoking Tobacco: Unknown Tobacco Cessation:Counseling Given: Not Answered Sex and Gender Information Value Date Recorded Sex Assigned at Not on file Gender Identity Not on file Sexual Orientation Not on file documented as of this encounter Last Filed Vital Signs Vital Sign Reading Time Taken Comments Blood Pressure 149/56 08/27/2023 2:43 PM CDT Pulse 77 08/27/2023 2:43 PM CDT Temperature - - Respiratory Rate - - Oxygen Saturation - - Inhaled Oxygen Concentration - - Weight 80.4 kg (177 lb 3.2 oz) 08/27/2023 2:43 P M CDT Height - - Body Mass Index - - documented in this encounter Patient Instructions * Patient Instructions* Pravin Christina MBBS - 08/27/2023 3:00 PM CDT Continue Acupuncture as needed. Continue to stay active. Muscle biopsy was normal. Follow up Dr. Lyman as scheduled. Follow up min [facility] neurology clinic as needed. documented in this encounter Progress Notes * Pravin Christina MBBS - 08/27/2023 3:00 PM CDT NEUROLOGY CLINIC VISIT FOLLOW UP Melva Cantor : 1940 Sex: female Primary care physician: Percy Lyman MD CHIEF COMPLAINT: Weakness and tremor follow up HISTORY OF PRESENT ILLNESS: Melva Cantor is a 82 y.o. female with history of A-fib L3-L4 fusion in May 2022, remote history ofthyroid cancer status post surgery who presents for evaluation of tremors and weakness. Patient endorsed that around 3 years ago is when she started noticing tremors mainly in her head along with weakness in all extremities mainly proximally but worse in the bilateral lower extremities. The tremorswere not constant in her head and progressively started affecting her upper and lower extremities as well. Patient feels like the tremors are worse on her right side of her body and she can intermittently get tremors and any extremity without specific pattern. Patient explains of events where she kirkpatrick ddenly starts having tremors in her right leg and feet which has made it difficult for her to driveand has had situations where she had to pull up on the side of the road to control the tremors to continue driving. Was found to have L 3-L4 spine disease for which she underwent fusion in Mayfter which the patient was in rehab for a month where she was getting physical therapy frequently.And according to the daughter the patient's weakness had improved while she was in the facility andafter June 2022 the patient has not received any therapies and the daughter feels like the patienthas gone back to being weak. The patient currently lives in a facility that does offer physical therapy but the patient has not participated in any as she feels like it does not help her. Patient [facility] where they were concerned for myasthenia gravis and had her evaluated for the same but the lab values were all negative. Patient was then referred to [facility] for possible muscle biopsy and evaluation. Patient denied any difficulties with vision, hearing, swallowing, word finding, sensory changes, confusion, slurred speech. According to the patient she has had episodes where she moves around in her sleep a lot as per what her has told her and the patient and daughter has also noticed that the patient's expressions are less evident over the last 3 years. Patient denied any difficulty in sensation of smell, constipation. INTERVAL HISTORY: Today, patient presents for follow up and reports that she has been doing well and since we last saw her she had a Mohs procedure done for her basal cell carcinoma on her nose, contracted an infection after using the pool in her senior facility after which she received antibiotics. After the courseof antibiotics the patient felt like she was getting stronger and also the tremors that improved where she notices her head tremors only intermittently occasionally. Patient also stopped taking Lyrica that was prescribed to her from the neurologist at [facility] Dr. Lyman. Patient is able to walk for a mile with her dog without any difficulty now whereas previously she could only walk maybe 20 feet with needing to take rest. Patient feels that she is also eating much better and is able to haveup to 2 slices of pizza and 1 sitting. Patient denied any new weakness, numbness, tingling, vision change, hearing change, incontinence to bowel/bladder, falls, word finding difficulty, slurred speech. REVIEW OF SYSTEMS: 10+ review of systems performed and is negative except as noted in HPI. PAST MEDICAL HISTORY: There are no problems to display for this patient. MEDICATIONS: Current Outpatient Medications on File Prior to Visit Medication Sig Dispense Refill ELIQUIS 5 MG oral tablet Take 1 tablet (5 mg) by mouth twice daily. cyclobenzaprine (FLEXERIL) 10 mg oral Take 1 tablet (10 mg) by mouth 3 times daily. flecainide (TAMBOCOR) 100 mg oral TABS Take 1 tablet (100 mg) by mouth twice daily. furosemide (LASIX) 40 mg oral tablet Take 1 tablet (40 mg) by mouth twice daily. hydrALAZINE (APRESOLINE) 25 mg oral TABS Take 1 tablet (25 mg) by mouth 4 times daily. levothyroxine (SYNTHROID) 150 mcg oral TABS Take 1 tablet (150 mcg) by mouth daily. losartan (COZAAR) 50 mg oral TABS Take 1 tablet (50 mg) by mouth twice daily. mirtazapine (REMERON) 30 mg oral tablet SMARTSI-1.5 Tablet(s) By Mouth Every Night potassium chloride (K-DUR) 20 meq oral tablet Take 1 tablet (20 mEq) by mouth 3 times daily. rosuvastatin (CRESTOR) 5 mg oral tablet SMARTSIG:Tablet(s) By Mouth traMADol (ULTRAM) 50 mg oral tablet Take 1 tablet (50 mg) by mouth every 4 hours as needed. pregabalin (LYRICA) 150 mg oral capsule Take 1 capsule (150 mg) by mouth twice daily. No current facility-administered medications on file prior to visit. PHYSICAL EXAMINATIONS: Vital Signs: Patient Vitals for the past 24 hrs: BP Pulse Weight 08/27/23 1443 (!) 149/56 77 80.4 kg (177 lb 3.2 oz) There is no height or weight on file to calculate BMI. General Appearance: Adult, pleasant, in NAD, cooperative. Age appearing. HEENT: NC/AT. Chest: No labored breathing, no accessory muscle movement. Cardiovascular: Irregularly irregular Abdomen: Soft. Extremities: Warm and well perfused, no clubbing, no cyanosis Skin: No rash or lesions on exposed skin. Psych: Affect wnl, no depression/anxiety Neuro Exam: Mental Status: Alert, oriented x3, attentive. No evidence of aphasia noted with spontaneous speech,simple naming, repetition, reading. Follows multi-step commands without difficulty. Cranial Nerves: Visual patricia full. PERRL. EOMI without nystagmus, able to bury sclera in all directions. Smooth pursuit impaired with mild saccadic movements while testing. Facial sensation intact and equal. Face is symmetric. Hearing intact to conversation. No dysarthria. Shoulder shrug strong bilaterally. Palate and uvula midline. Tongue midline. Multidirectional head tremor +, blinking rate decreased, expressions less pronounced Motor: Normal tone. Tremors were not noticed in all 4 extremities during patient's visit with us, strength 4+/5 in bilateral shoulder abduction, adduction, 5/5 in elbow flexion in bilateral upper extremities, 4+/5 in elbow extension bilateral upper extremities, manager progressive care, wrist flexion extension 5/5 bila teral upper extremities. 4+/5 strength in bilateral lower extremity hip flexion and extension, 5/5 in bilateral knee flexion and extension, 5/5 in dorsi and plantarflexion bilateral lower extremities. Sensory: Intact and equal to light touch. Romberg positive. Reflexes: 2+ present and symmetric at bilateral biceps, brachioradialis, patellae and achilles. Toes downgoing. Coordination: Finger to nose intact bilaterally. Incomplete opening and closing of hand, finger taps bilaterally low amplitude and irregular frequency. Toe tap bilaterally slow amplitude and irregular frequency. Gait: Flexed gait, short steps, no tremors noticed while walking, takes around 4steps to turn around, armswing armswing on the right. REVIEW OF LABORATORY, PATHOLOGY, AND RADIOLOGY DATA: I have seen and reviewed: Radiology images and labs. C-REACTIVE PROTEIN - HS (04/23/2023 16:38) VITAMIN B1 (THIAMINE) (04/23/2023 16:38) CK, TOTAL (04/23/2023 16:38) TSH WITH REFLEX TO FREE T4 (04/23/2023 16:38) VITAMIN [id number] TO MMA (04/23/2023 16:39) NEUROMUSCULAR TISSUE (07/30/2023 10:54) ASSESSMENT/RECS: 82-year-old female who presents to clinic for follow-up for her tremor and weakness. Is reassuring that the patient has been feeling better over the last few months and has not had any falls. On neuroexam today the patient does seem mildly improved but the patient continues to have some parkinsonian features that are mild like multidirectional head tremor, decreased blink rate, impaired smooth pursuit. Mild saccadic movements. Patient also continues to have mild weakness in her bilateral lower extremities with hip flexion more on the right than the left. Considering the fact that the patient has had significant improvement in health and is able to walk for distance we think even though the features of parkinsonism are mild it is better not to treat at the moment. Patient feels like acupuncture has helped her a lot so we encouraged her to continue with therapies. We also encouraged her to stay active as this will help her regain more strength. Patient wanted to follow-up with Dr. Lyman in [facility], to which we agreed to. Patient had a muscle biopsy done on July 30, 2023 which was within normal limits. We explained this to the patient as well. Patient can follow-[facility] in [facility] as needed. Patient endorsed understanding and agreed to the plan. Continue Acupuncture as needed. Continue to stay active. Muscle biopsy was normal. Follow up Dr. Lyman as scheduled. Follow up min [facility] neurology clinic as needed. Patient was seen and discussed with my attending, Dr. Raymon MD, who agrees with the assessment and plan as listed above. ARLEN Sousa Neurology Resident PGY 3 * Elizabeth Rowley MD - 08/27/2023 3:00 PM CDT FACULTY NOTE I saw and evaluated the patient on the date of the resident's note. I discussed with the resident and agree with the resident???s findings and plan documented in the resident???s note from above. Anyrevisions by me are documented. This is an 82 yo F with tremors in her head, tremors in her arm and legs, last seen on 04/23/23. Acupuncture has been helping her a lot. She walks with her dog every day if it's not raining. She doesn't fall. She lives with her . They are looking at transferring their cares to [facility], including neurology. PCP note 06/26/23 mentioned BP ranging between 106-169. Had BCC on the nose s/p Mohs 07/14/23. Today, she is happy and cheerful. She feels great; saying that she doesn't fall and can walk a milewithout getting tired. She asked about her muscle biopsy, which we informed her was normal. She has a grab bar in the bathroom that she has to use to help get herself off the toilet. She has to use her hands to get up out of a chair. She feels that she can manage. She has mild parkinsonian features on exam. She has expressive face and voice yet. She has head tremor (not a PD feature). No resting tremors of the hands. Interestingly, with her shoes on, she has this movement of her feet, almost like she's a bit restless. When shoes were removed and she was asked to sit quietly with her eyes closed, hands on lap, palms facing upwards, no such movements were observed in the feet. Upon putting shoes back on, the movements started again. As her symptoms are mild and she feels that she is functional and safe, we need not further try to treat the parkinsonian symptoms; treatment is not curative or disease-modifying, but, rather is symptomatic - but treatment will not prevent falling and will not improve her proximal weakness. She hasmild weakness on hip flexion, 5- on the right and 4++ on the left (no pain with movement passively a gainst resistance or actively). She is on crestor, which possibly induce proximal weakness without myalgia. I don't know what her LDL is or what her LDL goal is or exactly why she's on a statin. She does not get her primary care her through [facility] Elizabeth Rowley MD, 08/27/2023 3:19 PM documented in this encounter Plan of Treatment Not on file documented as of this encounter Visit Diagnoses Diagnosis Proximal muscle weakness- Primary Muscle weakness (generalized) Parkinsonism, unspecified Parkinsonism type (CMS) documented in this encounter Care Teams Wellness Instructor Relationship Specialty Start Date End Date Percy Lyman MD [facility] [address] [place] [address] PCP - General Neurology 01/22/23 documented as of this encounter
--- OUTSIDE RECORDS SUMMARY | 2023-10-30 13:49 | XMS_ITS | Clinical Summary ---
Author Organization [facility] Address [address] [place] [address] Phone Care Team Providers Care Electronic Test Technician Name Role Phone Swapna Lyman MD Primary Care Provider [phone] Source Comments [facility] is fully rolled out on [employer]. Last update 09/02/08.[facility] Allergies Active Allergy Reactions Criticality Noted Date Comments Aluminum Chloride Itching/Pruritus,Rash Medium 024 Amlodipine Itching/Pruritus Medium 07/30/2023 Ampicillin Itching/Pruritus,Rash Medium 07/30/2023 Atorvastatin Itching/Pruritus,Rash Medium 07/30/2023 Azithromycin Itching/Pruritus,Rash Medium 07/30/2023 Bupivacaine Itching/Pruritus,Rash Medium 07/30/2023 Ciprofloxacin Itching/Pruritus,Rash Medium 07/30/2023 Codeine Itching/Pruritus,Rash Medium 07/30/2023 Diazepam Cardiac Arrest High 04/23/2023 Fentanyl Itching/Pruritus,Rash Medium 04/23/2023 Hydromorphone Itching/Pruritus,Rash Medium 07/30/2023 Ibuprofen Itching/Pruritus,Rash Medium 07/30/2023 Influenza Virus Vaccine Itching/Pruritus,Rash Medium 0 07/30/2023 Ketorolac Tromethamine Itching/Pruritus,Rash Medium Meperidine Itching/Pruritus,Rash Medium 07/30/2023 Midazolam Cardiac Arrest High 07/30/2023 Patient report Mirabegron Itching/Pruritus,Rash Medium 07/30/2023 Morphine Sulfate Itching/Pruritus,Rash Medium 07/30/19 Oxybutynin Itching/Pruritus,Rash Medium 07/30/2023 Patient report Procaine Itching/Pruritus,Rash Medium 07/30/2023 Promethazine Hcl Itching/Pruritus,Rash Medium 07/30/19 Patient report Propafenone Itching/Pruritus,Rash Medium 07/30/2023 Simvastatin Itching/Pruritus,Rash Medium 07/30/2023 Sumatriptan Itching/Pruritus Medium 07/30/2023 Terbinafine Itching/Pruritus,Rash Medium 07/30/2023 Trazodone Itching/Pruritus,Rash Medium 07/30/2023 Trospium Itching/Pruritus,Rash Medium 07/30/2023 Zolpidem Itching/Pruritus,Rash Medium 07/30/2023 Medications * Be aware that medications may not be up to date as of this document. Always verify current medications with patient. Medication Sig Dispensed Refills Start Date End Date Status ELIQUIS 5 MG oral tablet Take 1 tablet (5 mg) by mouth twice daily. 02/21/2023 Active cyclobenzaprine (FLEXERIL) 10 mg oral Take 1 tablet (10 mg) by mouth 3 times daily. 12/13/2022 Active flecainide (TAMBOCOR) 100 mg oral TABS Take 1 tablet (100 mg) by mouth twice daily. 03/13/2023 Active furosemide (LASIX) 40 mg oral tablet Take 1 tablet (40 mg) by mouth twice daily. 02/13/2023 Active hydrALAZINE (APRESOLINE) 25 mg oral TABS Take 1 tablet (25 mg) by mouth 4 times daily. 03/12/2023 Active levothyroxine (SYNTHROID) 150 mcg oral TABS Take 1 tablet (150 mcg) by mouth daily. 04/18/2023 Active losartan (COZAAR) 50 mg oral TABS Take 1 tablet (50 mg) by mouth twice daily. 04/18/2023 Active mirtazapine (REMERON) 30 mg oral tablet SMARTSI-1.5 Tablet(s) By Mouth Every Night 04/02/2023 Active potassium chloride (K-DUR) 20 meq oral tablet Take 1 tablet (20 mEq) by mouth 3 times daily. 03/12/2023 Active rosuvastatin (CRESTOR) 5 mg oral tablet SMARTSIG:Tablet(s) By Mouth 04/18/2023 Active traMADol (ULTRAM) 50 mg oral tablet Take 1 tablet (50 mg) by mouth every 4 hours as needed. 12/12/2022 Active pregabalin (LYRICA) 150 mg oral capsule Take 1 capsule (150 mg) by mouth twice daily. 03/12/2023 Active Active Problems No known active problems Encounters Date Type Department Care Team Description 08/27/2023 3:00 PM CDT [facility] [address] [place] [id number] Provider, Outside Pravin Christina MBBS Proximal muscle weakness (Primary Dx); Parkinsonism, unspecified Parkinsonism type (CMS) Discharge Disposition: Discharged to home or self care (routine discharge) 08/27/2023 Travel 07/30/2023 10:00 AM CDT [facility] [address] [place] [id number] Jacquie Alfaro DO Proximal weakness of limb (Primary Dx) Discharge Disposition: Discharged to home or self care (routine discharge) 07/30/2023 Travel from Last 3 Months Social History Tobacco Use Types Packs/Day Years Used Date Smoking Tobacco: Unknown Tobacco Cessation:Counseling Given: Not Answered Sex and Gender Information Value Date Recorded Sex Assigned at Not on file Gender Identity Not on file Sexual Orientation Not on file Last Filed Vital Signs Vital Sign Reading Time Taken Comments Blood Pressure 149/56 08/27/2023 2:43 PM CDT Pulse 77 08/27/2023 2:43 PM CDT Temperature 36.1 ??C (97 ??F) 07/30/2023 9:24 AM CDT Respiratory Rate - - Oxygen Saturation - - Inhaled Oxygen Concentration - - Weight 80.4 kg (177 lb 3.2 oz) 08/27/2023 2:43 P M CDT Height - - Body Mass Index - - Plan of Treatment Health Maintenance Due Date Last Done Comments Dental Oral Exam 1941 Dental Prophylaxis 1941 Dental X-Ray: Bitewings 1941 Depression Management 1941 Imm: Pneumonia greater than 65 years (1 of 2 - PCV) 10/18/1947 Imm: DTaP/Tdap (1 - Tdap) 1948 Periodontal Maintenance 10/18/1955 PREVENTATIVE VISIT 10/18/1959 HEALTH MAINTENANCE PROTOCOL 1960 Imm: Zoster (1 of 2) 10/18/1991 Osteoporosis Screening (Dexa Scan) 2006 Imm: COVID-19 ( season) 2023 02/04/2023, 05/31/2022, 07/13/2021, Additional history exists Imm: Flu (#1) 11/30/2023 Medicare Annual Wellness 06/25/2024 024, 06/21/2022, 05/29/2021, Additional history exists Imm: HPV Aged Out No longer eligi ble based on patient's age to complete this topic Imm: HepA Aged Out No longer eligi ble based on patient's age to complete this topic Imm: HepB Aged Out No longer eligi ble based on patient's age to complete this topic Imm: Hib Aged Out No longer eligi ble based on patient's age to complete this topic Imm: Meningitis Aged Out No longer el igible based on patient's age to complete this topic Procedures Procedure Name Priority Date/Time Associated Diagnosis Comments PC SPECIAL STAIN GROUP III, ENZYME, INTERPRETATION AND REPORT Routine 07/30/2023 10:54 AM CDT from Last 3 Months Results * NEUROMUSCULAR TISSUE (07/30/2023 10:54 AM CDT) ELECTRON MICROSCOPY FINAL REPORT ?Electron Microscopy Report Collection Date: ?07/30/2023 10:54 CDT ? Ordering Physician: ? SWAPNA LYMAN Received Date: ?07/30/2023 11:30 CDT ? Accession Number: ? [id number] ?ES Final Report Specimen Type Muscle, left, rectus femoris, biopsy Final Diagnosis This is a generally unremarkable biopsy. ??There are no findings to suggest an underlying myopathy or neuropathy. Findings of type 2 myofiber atrophy can be seen in chronic alcoholism, muscle disuse, weight loss and malnutrition. * ??Report Electronically Signed By ??* ?? ALY BANUELOS MD ?? 08.11.2023 11:13 Clinical History Patient is a 82-year-old female, outpatient, with a history of proximal muscle ? weakness ??and lower extremity numbness and tingling. 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 EMG sampling showed mild reinnervation changes, which can be seen in the context of lumbosacral radiculopathies. A muscle biopsy was requested to evaluate for the question of myopathy of myositis. OKN/GT 07.31.2023 7:57 Gross Description Location of Procedure: ??[facility] Referring Clinic: [facility] ?Patient No.: ??[id number] Two pieces of reddish tissue, measuring 2.3x0.5x0.4 and 1.7x0.8x0.4 cm respectively, are submitted for snap freezing for light microscopy. A piece of tissue held by sutures on a tongue blade at resting length measuring 1.9x0.7x0.4 cm is submitted in 4:1 EM fixative for ultrastructural study. OKN/GT 07.31.2023 7:57 Microscopic Description Hematoxylin & Eosin (H & E) staining does show prominent variation of muscle fiber size. Grouped atrophy is not noted. Smaller angular fibers are present. Muscle fibers measure 20-100 microns in diameter. Muscle fibers are polygonal in shape. Blood vessels appear unremarkable. Internal nuclei are rarely noted. Pyknotic nuclear clumps are occasionally noted. Inflammatory infiltrates are not noted. Gomori trichrome does not reveal nemaline rods or abnormally increased ragged red fibers. 2 ragged red fibers are present. ??This is consistent with normal findings for her age group. Intramuscular nerves are noted and appear unremarkable. Verhoeff-Van Gieson (VVG) shows normal connective tissue and vessel structure. Endomysial fibrosis is not noted. NADH shows normal muscle fiber internal architecture. Tubular aggregates and cores are not noted. Congo red does not reveal amyloid or inflammatory infiltrates. ATPase, pH 9.4, 4.6 and 4.3 do not reveal muscle type grouping or fiber type predominance. Type 2 myofiber atrophy is present. Immature fibers are rarely noted. Alkaline phosphatase is unremarkable. Immature fibers are not noted. Acid phosphatase does not reveal excessive staining for histiocytes. Esterase does not reveal excessive staining for histiocytes. A few normal neuromuscular junctions are noted. ?Electron Microscopy Report Collection Date: ?07/30/2023 10:54 CDT ? Ordering Physician: ? SWAPNA LYMAN Received Date: ?07/30/2023 11:30 CDT ? Accession Number: ? [id number] Microscopic Description Succinate dehydrogenase (SDH) and cytochrome oxidase (Alegria) staining do not reveal excessive mitochondrial accumulation or mitochondrial pathology. [place] black and ??Periodic acid -Irma (PAS) do not reveal excessive storage material. Phosphorylase and Adenosine Monophosphate Deaminase(AMPDA)ar e present. OKN/GT 07.31.2023 7:57 Electron Microscopy Semi-thin Stained Sections: Toluidine blue ??stained sections do show muscle fiber size variation or inflammation. Vessels are present. Intramuscular nerve fibers are not noted. Electron Microscopy: Myofibrils and sarcomere patterns are preserved and normal. Intramuscular lipid and glycogen are present in appropriate amounts. Mitochondria are morphologically intact and present in expected numbers. Capillaries are unremarkable. A few areas of artifact are present. Interpretation: Ultrastructural study is unremarkable. OKN/GT 07.31.2023 7:57 [facility] AP Specimen 07/30/2023 10:5 4 AM CDT 07/30/2023 11:30 AM CDT Comment:EM Muscle Biopsy IP/ OP Swapna WEBB PATHOLOGY [facility] [address] [place] [address] from Last 3 Months Care Teams Electronic Test Technician Relationship Specialty Start Date End Date Swapna Lyman MD [facility] [address] [place], [place] [id number] PCP - General Neurology 01/22/23
--- OUTSIDE RECORDS SUMMARY | 2023-10-30 13:49 | XMS_ITS | Encounter Summary ---
Author Organization [facility] Address [address] [place] [phone] Phone Care Team Providers Care Fuel System Maintenance Supervisor Name Role Phone Percy Lyman MD Primary Care Provider [phone] Encounter Details Date Type Department Care Team (Latest Contact Info) Description 08/27/2023 Travel Social History Tobacco Use Types Packs/Day Years Used Date Smoking Tobacco: Unknown Sex and Gender Information Value Date Recorded Sex Assigned at Not on file Gender Identity Not on file Sexual Orientation Not on file documented as of this encounter Plan of Treatment Not on file documented as of this encounter Visit Diagnoses Not on filedocumented in this encounter Care Teams Fuel System Maintenance Supervisor Relationship Specialty Start Date End Date Percy Lyman MD [facility] [address] [place] [address] PCP - General Neurology 01/22/23 documented as of this encounter
--- OUTSIDE RECORDS SUMMARY | 2023-10-30 13:49 | XMS_ITS | Encounter Summary ---
Author Organization [facility] Address [address] [place] [address] Phone Care Team Providers Care Drag Sawyer Name Role Phone Percy Lyman MD Primary Care Provider [phone] Encounter Details Date Type Department Care Team (Latest Contact Info) Description 07/30/2023 Travel Social History Tobacco Use Types Packs/Day Years Used Date Smoking Tobacco: Unknown Sex and Gender Information Value Date Recorded Sex Assigned at Not on file Gender Identity Not on file Sexual Orientation Not on file documented as of this encounter Plan of Treatment Not on file documented as of this encounter Visit Diagnoses Not on filedocumented in this encounter Care Teams Drag Sawyer Relationship Specialty Start Date End Date Percy Lyman MD [facility] [address] [place] [address] PCP - General Neurology 01/22/23 documented as of this encounter
--- OUTSIDE RECORDS SUMMARY | 2023-10-30 13:49 | XMS_ITS | Referral Summary ---
Author Organization [facility] Address [address] [place] [phone] Phone Care Team Providers Care Flash Drier Operator Name Role Phone Swapna Lyman MD Primary Care Provider [phone] Source Comments [employer] is fully rolled out on [employer]. Last update 09/02/[employer] Encounters Date Type Department Care Team Description 08/27/2023 Travel 08/27/2023 3:00 PM CDT [facility] [address] [place] [phone] Provider, Outside Pravin Christina MBBS Proximal muscle weakness (Primary Dx); Parkinsonism, unspecified Parkinsonism type (CMS) Discharge Disposition: Discharged to home or self care (routine discharge) 07/30/2023 Travel 07/30/2023 10:00 AM CDT [facility] [address] [place] [address] [phone] Jacquie Alfaro DO Proximal weakness of limb (Primary Dx) Discharge Disposition: Discharged to home or self care (routine discharge) from Last 3 Months Allergies Active Allergy Reactions Criticality Noted Date [...] Active Active Problems No known active problems Social History Tobacco Use Types Packs/Day Years [...] Mass Index - - Plan of Treatment Not on file Procedures Procedure Name Priority Date/Time Associated Diagnosis Comments PC SPECIAL STAIN GROUP III, ENZYME, INTERPRETATION AND REPORT Routine 07/30/2023 10:54 AM CDT from Last 3 Months Results * NEUROMUSCULAR TISSUE (07/30/2023 10:54 AM CDT) ELECTRON MICROSCOPY FINAL REPORT ?Electron Microscopy Report Collection Date: ?07/30/2023 10:54 CDT ? Ordering Physician: ? SWAPNA LYMAN Received Date: ?07/30/2023 11:30 CDT ? Accession Number: ? [id number] ?ES Final Report Specimen Type Muscle, left, [...] 7:57 Gross Description Location of Procedure: ??[facility] Referring Clinic: [facility] ?Patient No.: ??[id number] Two pieces of reddish tissue, measuring 2.3x0.5x0.4 and 1.7x0.8x0.4 cm respectively, are submitted for snap freezing for light microscopy. A piece of tissue held by sutures on a tongue blade at resting length measuring 1.9x0.7x0.4 cm is submitted in 4:1 EM fixative for ultrastructural study. [facility]/ 07.31.2023 7:57 Microscopic Description Hematoxylin & Eosin [...] ?07/30/2023 11:30 CDT ? Accession Number: ? [id number] Microscopic Description Succinate dehydrogenase (SDH) and cytochrome oxidase (Alegria) staining do not reveal excessive mitochondrial accumulation or mitochondrial pathology. [place] black and ??Periodic acid -Irma (PAS) do not reveal excessive storage material. Phosphorylase and Adenosine Monophosphate Deaminase(AMPDA)ar e present. [facility]/ 07.31.2023 7:57 Electron Microscopy Semi-thin Stained Sections: [...] Ultrastructural study is unremarkable. OKN/GT 07.31.2023 7:57 [facility] AP Specimen 07/30/2023 10:5 4 AM CDT 07/30/2023 11:30 AM CDT Comment:EM Muscle Biopsy IP/ OP Swapna Lyman LAB [facility]OLOG[facility] [address] [place] [address] from Last 3 Months Care Teams Flash Drier Operator Relationship Specialty Start Date End Date Swapna Lyman MD [facility] [address] [place] [address] PCP - General Neurology 01/22/23
--- OUTSIDE RECORDS SUMMARY | 2023-10-30 13:49 | XMS_ITS | Encounter Summary ---
Author Organization [facility] Address [address] [place] [address] Phone Care Team Providers Care High School Sports Coach Name Role Phone Swapna Lyman MD Primary Care Provider [phone] Reason for Visit * Prior Authorization (Routine) - Closed Specialty Diagnoses / Procedures Referred By Elham t Referred To Contact Surgery / SURGERY Diagnoses Dr Roa- left rectus femoris muscle Muscle bx Procedures [place] CYSTOURETHROSCOPY INJ CHEMODENERVATION BLADDER Jacquie Alfaro, DO [address] [place] [address] Referral ID Status Reason Start Date Expiration Date Visits Re quested Visits Authorized [id number] Closed 1 1 Encounter Details Date Type Department Care Team (Late st Contact Info) Description 07/30/2023 10:00 AM CDT [facility] [address] [address] Jacquie Alfaro DO [address] [place] [address] Proximal weakness of limb (Primary Dx) Discharge [...] Sign Reading Time Taken Comments Blood Pressure 142/66 07/30/2023 9:24 AM CDT Pulse 92 07/30/2023 9:24 AM CDT Temperature 36.1 ??C (97 ??F) 07/30/2023 9:24 AM CDT Respiratory Rate - - Oxygen Saturation - - Inhaled Oxygen Concentration - - Weight 82.1 kg (181 lb) 07/30/2023 9:24 AM CDT Height - - Body Mass Index - - documented in this encounter Patient Instructions * Patient Instructions* Adela Ojeda RN - 07/30/2023 10:00 AM CDT You were seen today for a muscle biopsy . The sutures placed today will dissolve on their own. The glue used today will peel off on its own in about 1-2 weeks. You can shower tonight, but avoid soaking in tubs and pools until the incision is completely healed. This can take two or more weeks. Monitor your incision for redness, swelling, warmth, and thick yellow/green drainage. You do not need to f ollow up with the surgeon, but if you have any questions or concerns, feel free to call our clinic nurse line at [phone]. documented in this encounter Progress Notes * Jacquie Alfaro DO - 07/30/2023 10:00 AM CDT Patient has a listed lidocaine allergy - but denied this prior to the procedure and had just received it for a procedure recently and had no reaction. Jacquie Alfaro DO, 07/30/2023 10:57 AM * Adela Ojeda RN - 07/30/2023 10:00 AM CDT Images from the original note were not included. Nursing Note- Minor Procedure Melva Cantor seen in clinic for the following procedure: Procedure: Muscle biopsy Site: Left rectus femoris BP (!) 142/66 (Cuff Location: Left Arm, Patient Position: Sitting, Cuff Size: Adult - regular) Pulse 92 Temp 36.1 ??C (97 ??F) (Oral) Wt 82.1 kg (181 lb) Consent: Obtained and verified with the patient. Time Out: Completed with staff and patient Time Out time: 1018 Procedure Start Time: 1020 Procedure End Time: 1105 Medication during procedure: 1% Lidocaine with Epi. Confirmed with patient no known allergy to lidocaine. Tolerated administration with no reaction. Medication total (mL): 20 ml Estimated Blood Loss (mL): Minimal LOC return to patient baseline: yes Specimens: Yes: 2 fresh left rectus femoris muscle samples, 1 left rectus femoris muscle sample in fixative Dressing/Closure: Sutures and Dermabond Patient tolerated: yes Safety measures maintained through procedure Pt will follow up as instructed by provider. Adela Ojeda RN, 07/30/2023 11:19 AM * Michelle Beckett MD - 07/30/2023 10:00 AM CDT Images from the original note were not included. CLINIC PROCEDURE NOTE - PGY 1 Melva Cantor : 1940 Sex: female 07/30/2023 12:35 Procedures Performed Muscle Biopsy Indications: Weakness and tremors of uncertain etiology Pre-operative Diagnosis: Proximal weakness of limb Post-operative Diagnosis: Proximal weakness of limb Surgeon(s): Dr. Jacquie Alfaro, Dr. Michelle Beckett Anesthesia: Local Procedure Details The patient was seen in the Procedure Room. The risks, benefits, indications, potential complications, treatment options, and expected outcomes were discussed with the patient. The possibilities of reaction to medication, bleeding, infection, the need for additional procedures, failure to diagnose a condition, and creating a complication requiring transfusion or further operation were discussed with the patient. The patient concurred with the proposed plan, giving informed consent. The site of procedure was properly noted. A Time Out was performed. The patient was identified as Melva Cantor and the procedure verified as SIDE: left rectus femoris muscle biopsy. The patient was placed in the supine position and 10 cc of 1% lidocaine with epinephrine local anesthetic was administered. The SIDE: left thigh was prepped and draped in standard sterile fashion. Anapproximately 2 cm longitudinal incision was made using an #10 blade scalpel over the rectus femoris muscle through the skin and subcutaneous tissue. The fascia was then bluntly dissected to muscle. Another 10 cc of 1% lidocaine was injected for more anesthesia. A small nerve was identified and isolated. An individual muscle fascicle was isolated again using blunt dissection. Once the fascicle was free, an approximately 1 cm x 5 mm section of muscle was sharply excised and passed off the field as specimen. An additional two 1 cm x 5 mm sections of muscle were sharply excised and passed off the field as specimen. Hemostasis was achieved using electrocautery. The incision was closed in two layers using 3-0 vicryl running sutures to close the fascia and 2-0 vicryl interrupted deep dermal sutu res. Skin was closed with 4-0 monocryl running subcuticular suture and Dermabond. Sterile dressings were applied. Instrument, sponge, and needle counts were correct at closure and at the conclusion of the case. Findings: Healthy appearing muscle Estimated Blood Loss: minimal Specimens: muscle tissue x3 Complications: None; patient tolerated the procedure well. Michelle Beckett MD General Surgery, PGY-1 FACULTY NOTE I discussed with the resident and agree with the resident???s documentation in the note above. I was present for all critical portions of the procedure. Any revisions by me are documented. Jacquie Alfaro DO, 08/01/2023 Michelle Beckett MD, 07/30/2023 12:35 PM documented in this encounter Plan of Treatment Scheduled Orders Name Type Priority Associated Diagnoses Orde r Schedule SURGICAL PATHOLOGY Pathology STAT Proximal weakness of limb 1 Occurrences starting 07/30/2023 until 10/30/2023 documented as of this encounter Procedures Procedure Name Priority Date/Time Associated Diagnosis Comments PC SPECIAL STAIN GROUP III, ENZYME, INTERPRETATION AND REPORT Routine 07/30/2023 10:54 AM CDT documented in this encounter Results * NEUROMUSCULAR TISSUE (07/30/2023 10:54 AM CDT) ELECTRON MICROSCOPY FINAL REPORT ?Electron Microscopy Report Collection Date: ?07/30/2023 10:54 CDT ? Ordering Physician: ? SWAPNA LYMAN Received Date: ?07/30/2023 11:30 CDT ? Accession Number: ? [id number] ?ES Final Report Specimen Type Muscle, left, [...] for the question of myopathy of myositis. OKN/AKHIL 07.31.2023 7:57 Gross Description Location of Procedure: ??[facility] [place] 2[place] Surgery Clinic Referring Clinic: [facility] ?Patient No.: ??[id number] Two pieces of reddish tissue, measuring 2.3x0.5x0.4 [...] ?07/30/2023 11:30 CDT ? Accession Number: ? [id number] Microscopic Description Succinate dehydrogenase (SDH) and cytochrome oxidase (Alegria) staining do not reveal excessive mitochondrial accumulation or mitochondrial pathology. Emmet black and ??Periodic acid -Irma (PAS) do [...] study is unremarkable. OKN/GT 07.31.2023 7:57 [facility] [place] [facility] AP Specimen 07/30/2023 10:5 4 AM CDT 07/30/2023 11:30 AM CDT Comment:EM Muscle Biopsy IP/ OP Swapna Lyman LAB PATHOLOGY [facility] [place] [address] [address] documented in this encounter Visit Diagnoses Diagnosis Proximal weakness of limb- Primary Other musculoskeletal symptoms referable to limbs documented in this encounter Administered Medications Inactive Administered Medications - up to 3 most recent administrations Medication Order MAR Action Action Date Dose Rate Site lidocaine 1%-EPINEPHrine (1:100,000) injection 20 mL 20 mL, Subcutaneous, ONE TIME, 1 dose, On Fri07/30/23 at 1055 Given 07/30/2023 11:25 AM CDT 20 mL Left Anterior Thigh documented in this encounter Care Teams High School Sports Coach Relationship Specialty Start Date End Date Swapna Lyman MD [facility] [place] [address] PCP - General Neurology 01/22/23 documented as of this encounter
--- OUTSIDE RECORDS SUMMARY | 2023-10-30 13:49 | XMS_ITS | Encounter Summary ---
Author Organization [facility] Address [address] [place] [address] Phone Care Team Providers Care Career Center Director Name Role Phone Percy Lyman MD Primary Care Provider [phone] Reason for Visit * Reason Onset Date Comments Review Test Results 05/09/2023 Encounter Details Date Type Department Care Team (Late st Contact Info) Description 05/09/2023 Nurse Triage [facility] [address] [place] [address] Vera Whitehead, RN [address] [place] [address] Review Test Results Social History Tobacco Use Types Packs/Day Years Used Date Smoking Tobacco: Unknown Sex and Gender Information Value Date Recorded Sex Assigned at Not on file Gender Identity Not on file Sexual Orientation Not on file COVID-19 Exposure Response Date Recorded In the last 10 days, have yo u been in contact with someone who was confirmed or suspected to have Coronavirus/COVID-19? No / Unsure 04/23/2023 12:42 PM COMPUTER NETWORKING INSTRUCTOR documented as of this encounter Miscellaneous Notes * Telephone Encounter - Vera Whitehead RN - 05/09/2023 2:30 PM CST D: Telephone call received from patient with questing regarding letter sent 05/03. A: Caller advised a message will be sent to the clinic for follow up. R/P: Caller verbalized a understanding of the content being delivered. UTER NETWORKING INSTRUCTOR documented in this encounter Plan of Treatment Not on file documented as of this encounter Visit Diagnoses Not on filedocumented in this encounter Care Teams Career Center Director Relationship Specialty Start Date End Date Percy Lyman MD [facility] [address] [place] [address] PCP - General Neurology 01/22/23 documented as of this encounter
--- OUTSIDE RECORDS SUMMARY | 2023-10-30 13:50 | XMS_ITS | Clinical Summary ---
Author Organization [employer] [facility] Address [place], [place] [address] Care Team Providers Care Care Director Name Role Phone Raiza Salcido MD Primary Care Provide r Yo Rahman MD Unavailable Unavailable Arthur Simon MD Unavailable Unavail able Allergies Active Allergy Reactions Criticality Noted Date Comments Albuterol Throat Swelling/Closing High 08/24/2021 Aluminum Rash 09/12/2014 Amlodipine Edema,GI Upset,Itching High 02/14/2017 Caused reflux Ampicillin Hives,Itching,Rudi h Medium 09/27/2005 Atorvastatin Myalgia,Itching,R stephane Medium 09/27/2005 Azithromycin Diarrhea,Itching, Rash Medium 08/24/2013 Bupivacaine Angioedema,Erythe ma,Rash,Itching Medium 10/09/2015 Ciprofloxacin Nausea And Vomiting,Rash,Itc riri Medium 10/09/2015 Codeine Nausea And Vomiting,Rash,Itc riri High 10/09/2015 Diazepam Cardiac Arrest,*Unknown High 09/26/2005 Fentanyl Edema,Other - Describe In Comment Field,Itching,Rudi h Medium 05/05/2012 Eye swelling Haemophilus Influenzae Type B Itching,Rash Medium 07/30/2023 Hydrocodone GI Upset High 06/23/2022 Hydromorphone Hives,Itching,Rudi h Medium 09/27/2005 Ibuprofen Itching,Rash Medium 07/30/2023 Influenza A (H1n1) Vac 2008 Other - Describe In Comment Field 11/14/2021 Influenza Virus Vaccines Nausea And Vomiting 05/12/2013 High fever, nausea and vomiting per patient report Ketorolac Tromethamine Other - Describe In Comment Field,Itching,Rudi h High 11/14/2021 Meperidine Hives,Itching,Rudi h Medium 09/27/2005 itching, nausea and vomiting all narcotics only pain meds can take are toradol and indocin Methylprednisolone Rash 05/26/2019 Midazolam Cardiac Arrest High 09/26/2005 Patient report Mirabegron Palpitations,Itch ing,Rash Medium 05/05/2019 RAPID HEART RATE Morphine Hives 09/27/2005 Morphine Sulfate Itching,Rash Medium 07/30/2023 Nsaids (Non-Steroidal Anti-Inflammatory Drug) *Unknown Low 10/09/2015 Blood thinner Oxybutynin GI Upset,Itching,Rudi h Medium 05/05/2019 NAUSEA WITH ABDOMINAL CRAMPING,DIARRHEA Patient report Procaine Diarrhea,Edema,Ra sh,Itching High 03/16/2014 Prochlorperazine Dizziness 04/20/2021 Promethazine Nausea And Vomiting Medium 03/02/2012 Promethazine Hcl Itching,Rash Medium 07/30/2023 Patient report Propafenone GI Upset,Itching,Rudi h Medium 07/08/2017 Simvastatin Diarrhea,Itching, Rash Medium 08/13/2012 Sodium Chloride Nausea And Vomiting,GI Upset 06/05/2022 Table salt Sumatriptan *Unknown,Other - Describe In Comment Field,Itching High 10/09/2015 Patient states this medication did not work, Ineffective Terbinafine *Unknown,Nausea And Vomiting,Rash,Itc riri High 10/09/2015 Ketorolac Bleeding,Edema 10/09/2015 Trazodone *Unknown,Nausea And Vomiting,Itching, Rash High 10/09/2015 Tropicamide Edema 02/04/2023 Swelling of the face Trospium Diarrhea,Itching, Rash High 12/29/2018 Ondansetron Diarrhea 04/20/2021 Zolpidem *Unknown,Itching, Rash Medium 10/09/2015 Medication did not work. Medications Medication Sig Dispensed Refills Start Date End Date Status cholecalciferol, vitamin D3, (VITAMIN D3) 4,000 unit capIndications:Ant icoagulation monitoring, INR range 2-3 Take 1 Capsule by mouth once daily. Not taking 0 06/08/19 Active ascorbic acid, vitamin C, (VITAMIN C) 500 mg tablet Take 500 mg by mouth once daily. Not taking 0 07/26/19 20 Active cyanocobalamin (Vitamin B-12) 1,000 mcg tabletIndications: Vitamin B12 deficiency Take 1 Tablet (1,000 mcg) by mouth once daily. 90 Tablet 3 08/12/19 21 Active EPINEPHrine (EpiPen 2-Lalit) 0.3 mg/0.3 mL auto-injectorIndic ations:Food intolerance INJECT 0.3MG INTRAMUSCULAR 1 TIME IF NEEDED FOR SEVERE ALLERGIC REACTION Strength: 0.3 mg/0.3 mL 2 Each 04/07/19 23 Active lactobacillus rhamnosus, GG, (Culturelle) 10 billion cell capsule Take 1 Capsule by mouth once daily. Not taking 0 06/01/19 23 Active methocarbamoL (ROBAXIN) 750 mg tabletIndications: Acute post-operative pain Take 1 Tablet (750 mg) by mouth every 6 hours if needed for Muscle Spasm. 0 06/11/19 23 Active acetaminophen (TYLENOL) 325 mg tabletIndications: Pain Take 2 Tablets (650 mg) by mouth every 6 hours if needed for Pain. Max acetaminophen dose: 4000mg in 24 hrs. 0 07/04/19 23 Active ipratropium (Atrovent HFA) 17 mcg/actuation inhalerIndications :Wheezing Inhale 2 Puffs by mouth four times daily. 1 Each 3 07/04/19 23 Active sennosides-docusat e (SENOKOT S) (8.6-50 mg) tabletIndications: Constipation due to opioid therapy Take 2 Tablets by mouth 2 times daily if needed for Constipation. 07/04/19 23 Active Cranberry Extract 200 mg cap Take 200 mg by mouth once daily. Not taking Active traMADoL (ULTRAM) 50 mg tabletIndications: Lumbosacral radiculopathy at L5,S/P lumbar spinal fusion,Degeneratio n of lumbar intervertebral disc Take 1-2 Tablets (50-100 mg) by mouth 3 times daily if needed for Pain. 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 135 Tablet 3 11/08/19 23 Active cyclobenzaprine (FLEXERIL) 10 mg tabletIndications: Back pain without radiation,Back spasm TAKE ONE TABLET BY MOUTH THREE TIMES A DAY NEEDED FOR MUSCLE SPASM 30 Tablet 3 12/14/19 23 Active flecainide (TAMBOCOR) 100 mg tabletIndications: Paroxysmal atrial fibrillation (HC) Take 1 Tablet (100 mg) by mouth every 12 hours. 180 Tablet 3 02/29/20 23 Active nitrofurantoin macrocrystaL (MACRODANTIN) 50 mg capsuleIndications :Recurrent UTI TAKE ONE CAPSULE BY MOUTH EVERY DAY 90 Capsule 2 05/10/19 24 Active pregabalin (LYRICA) 150 mg capsuleIndications :Spinal stenosis of lumbar region with neurogenic claudication Take 1 Capsule (150 mg) by mouth two times daily. 180 Capsule 3 06/10/19 24 Active hyoscyamine sublingual (LEVSIN SL) 0.125 mg sublIndications:Ir ritable bowel syndrome, unspecified type PLACE ONE TABLET UNDER THE TONGUE EVERY 4 HOURS IF NEEDED FOR ABDOMINAL PAIN 30 Tablet 5 06/19/19 24 Active ondansetron (ZOFRAN) 4 mg tabletIndications: Nausea Take 1 Tablet (4 mg) by mouth every 8 hours if needed for Nausea/Vomiting. 30 Tablet 3 06/24/19 24 Active losartan (COZAAR) 50 mg tabletIndications: Essential hypertension Take 1 Tablet (50 mg) by mouth two times daily. 180 Tablet 3 06/26/19 24 Active furosemide (LASIX) 40 mg tabletIndications: Essential hypertension Take 1 Tablet (40 mg) by mouth two times daily. 180 Tablet 3 06/26/19 24 Active rosuvastatin (CRESTOR) 10 mg tabletIndications: Hyperlipidemia, unspecified hyperlipidemia type Take 1 Tablet (10 mg) by mouth at bedtime. 90 Tablet 3 06/26/19 24 Active levothyroxine (SYNTHROID) 150 mcg tabletIndications: Hypothyroidism, unspecified type Take 1 Tablet (150 mcg) by mouth before breakfast. 100 Tablet 3 06/26/19 24 Active metoprolol succinate (TOPROL XL) 50 mg sustained-release tabletIndications: Essential hypertension Take 1 Tablet (50 mg) by mouth once daily. 90 Tablet 3 06/26/19 24 Active potassium chloride (KLOR-CON M20) 20 mEq extended-release tablet (part/cryst)Indica tions:Essential hypertension Take 1 Tablet (20 mEq) by mouth three times daily with meals. 270 Tablet 3 06/26/19 24 Active estradioL (ESTRACE) 0.01% (0.1 mg/g) vaginal creamIndications:A trophic vaginitis Insert 2 g into the vagina every Friday and Friday. 42.5 g 5 09/12/19 24 Active hydrALAZINE (APRESOLINE) 25 mg tabletIndications: Essential hypertension Take 2 Tablets (50 mg) by mouth two times daily. Hold for SBP <110 360 Tablet 2 09/15/19 24 Active zaleplon (SONATA) 5 mg capsuleIndications :Insomnia, idiopathic Take 1 Capsule (5 mg) by mouth at bedtime if needed for Sleep. 30 Capsule 3 09/26/19 24 Active warfarin (COUMADIN) 5 mg tabletIndications: Paroxysmal atrial fibrillation (HC),Anticoagulati on monitoring, INR range 2-3 Take by mouth 5 mg (5 mg x 1) every Sun; 2.5 mg (5 mg x 0.5) all other days in the evening OR as directed 52 Tablet 10/13/19 24 Active warfarin (COUMADIN) 5 mg tabletIndications: Paroxysmal atrial fibrillation (HC),Anticoagulati on monitoring, INR range 2-3 Take by mouth 7/1: 2.5 mg; 7/2: 2.5 mg; 7/3: 2.5 mg; 7/4: 2.5 mg in the evening OR as directed 09/29/19 24 024 Discontinued(Ot her - add note to specify (E-cancel not sent)) warfarin (COUMADIN) 5 mg tabletIndications: Paroxysmal atrial fibrillation (HC),Anticoagulati on monitoring, INR range 2-3 Take by mouth 7/5: 2.5 mg; 7/6: 2.5 mg; 7/7: 5 mg in the evening OR as directed 10/03/19 24 024 Discontinued(Re order (E-cancel not sent)) warfarin (COUMADIN) 5 mg tabletIndications: Paroxysmal atrial fibrillation (HC),Anticoagulati on monitoring, INR range 2-3 Take by mouth 7/8: 2.5 mg; 7/9: 2.5 mg; 7/10: 2.5 mg in the evening OR as directed 10/06/19 24 024 Discontinued(Ot her - add note to specify (E-cancel not sent)) warfarin (COUMADIN) 5 mg tabletIndications: Paroxysmal atrial fibrillation (HC),Anticoagulati on monitoring, INR range 2-3 Take by mouth 5 mg (5 mg x 1) every Sun; 2.5 mg (5 mg x 0.5) all other days in the evening OR as directed 10/09/19 24 024 Discontinued Active Problems Problem Noted Date Diagnosed Date Anticoagulation monitoring, INR range 2-3 2023 Cognitive deficits 07/04/2022 URI (upper respiratory infection) 07/04/2022 Acute exacerbation of chroni c obstructive pulmonary disease (COPD) 07/03/2022 Disorder of upper airway 07/03/2022 Seizure 06/27/2022 Urinary frequency 11/09/2018 Chronic anticoagulation 11/17/2016 Bilateral low back pain without sciatica 016 Paroxysmal atrial fibrillati on (HC) s/p ablation with no recurrence post ablation 05/12/2013 Screen for colon cancer 07/24/2012 Overview: CT colonography 06/2012- normal, no follow up needed Impaired fasting glucose 09/21/2009 Unspecified hypothyroidism 03/04/2008 Major depression, recurrent 02/09/2008 Malignant neoplasm of thyroid gland 01/22/2006 Overview: s/p thyroidectomy 01/22/2006 Unspecified essential hypertension 01/22/2006 Other and unspecified hyperlipidemia 01/22/2006 Hypopotassemia 01/22/2006 Esophageal reflux 01/22/2006 Hx Migraines 01/07/2006 Edema 09/28/2005 Status epilepticus Acute respiratory failure Resolved Problems Problem Noted Date Diagnosed Date Resolved Date Type 2 diabetes mellitus without complication 07/21/19 19 07/13/2021 Anticoagulation monitoring, INR range 2-3 01/15/2018 11/08/2019 Anticoagulation monitoring, INR range 2-3 04/19/2013 06/20/2015 Depressive disorder, not elsewhere classified 01/23/20 06 02/09/2008 Follicular adenoma 01/07/2006 8 Unspecified essential hypertension 01/07/2006 02/09/2008 Other and unspecified hyperlipidemia 01/07/2006 02/09/2008 Depressive disorder, not elsewhere classified 01/08/20 06 02/09/2008 Esophageal reflux 01/07/2006 02/09/2008 Lumbago 01/07/2006 02/09/2008 CONFUSION 09/29/2005 02/09/2008 LOW BACK PAIN s/p SURG 09/27/05 09/28/2005 06/30/2015 Unspecified essential hypertension 09/28/2005 02/09/2008 Other and unspecified hyperlipidemia 09/28/2005 02/09/2008 Depressive disorder, not elsewhere classified 09/29/19 06 02/09/2008 Esophageal reflux 09/28/2005 02/09/2008 Encounters Date Type Department Care Team Description 10/30/2023 Travel 10/24/2023 8:50 AM CDT Orders Only [facility] [address] [place] [address] Lab, [facility] Lab 10/24/2023 Orders Only [facility] Scanner 1 scan: (1-Ord) [facility] 10/24/2023 Anticoagulation (warfarin) [facility] [address] [place] [address] 1, [facility]ticoagulation 10/24/2023 Travel 10/22/2023 8:11 AM CDT - 10/22/2023 11:59 PM CDT Hospital Encounter [facility] [address] [place] [address] Urinary tract infection without hematuria, site unspecified 10/22/2023 Travel 2023 9:00 AM CDT Orders Only [facility] [address] [place] [address] Lab, [facility] Lab 2023 Anticoagulation (warfarin) [facility] [address] [place] [address] 1, [facility] Anticoagulation 2023 Travel 10/13/2023 Refill [facility] [address] [place] [address] Raiza Salcido MD Refill Request (Warfarin) 10/13/2023 Telephone [facility] [address] [place] [address] Raiza Salcido MD Anticoagulation (Warfarin Dosing Questions) 10/09/2023 10:00 AM CDT Procedure Only [facility] [address] [place] [address] Pooja Nieves L Ac Acupuncture 10/09/2023 9:00 AM CDT Orders Only [facility] [address] [facility] [place] [address] Lab, [facility] Lab 10/09/2023 Anticoagulation (warfarin) [facility] [address] [place] [address] 1, [facility] Anticoagulation 10/09/2023 Travel 10/06/2023 10:00 AM CDT Orders Only [address] [place] [address] Lab, [facility] Lab 10/06/2023 Anticoagulation (warfarin) [facility] [address] [place] [address] 1, [facility] Anticoagulation 10/06/2023 Travel 10/03/2023 9:10 AM CDT Orders Only [address] [place] [address] Lab, [facility] Lab 10/03/2023 Anticoagulation (warfarin) [facility] [address] [place] [address] 1, [facility] Anticoagulation 10/03/2023 Travel 09/29/2023 9:00 AM CDT Orders Only [address] [place] [address] Lab, [facility] Lab 09/29/2023 Anticoagulation (warfarin) [facility] [address] [place] [address] 1, [facility] Anticoagulation 09/29/2023 Travel 09/25/2023 11:00 AM CDT Orders Only [address] [place] [address] Lab, [facility] Lab 09/25/2023 Telephone [facility] [address] [place] [address] Raiza Salcido MD Medication Management (mirtazapine (REMERON) 30 mg tablet/) 09/25/2023 Anticoagulation (warfarin) [facility] [address] [place] [address] 1, [facility] Anticoagulation 09/25/2023 Travel 09/22/2023 11:00 AM CDT Orders Only [address] [address] Lab, [facility] Lab 09/22/2023 Anticoagulation (warfarin) [facility] [address] [place] [address] 1, [facility] Anticoagulation 09/22/2023 Travel 09/19/2023 Telephone [facility] [address] [place] [address] Raiza Salcido MD Anticoagulation 09/18/2023 11:10 AM CDT Orders Only [address] [address] Lab, [facility] 09/18/2023 Anticoagulation (warfarin) [facility] [address] [place] [address] 1, [facility] Anticoagulation 09/18/2023 Travel 09/16/2023 1:00 PM CDT Procedure Only [facility] [address] [place] [address] Pooja Nieves L Ac Acupuncture 09/15/2023 11:20 AM CDT Orders Only [address] [address] Lab, [facility] 09/15/2023 Anticoagulation (warfarin) [facility] [address] [place] [address] 1, [facility] Anticoagulation 09/15/2023 Travel 09/13/2023 Refill [facility] [address] [place] [address] Raiza Salcido MD Refill Request (Hydralazine) 09/12/2023 11:50 AM CDT Orders Only [facility] [address] [place] [address] Lab, [facility] 09/12/2023 Anticoagulation (warfarin) [facility] [address] [place] [address] 1, [facility] 09/12/2023 Travel 09/12/2023 Telephone [facility] [address] [place] [address] Raiza Salcido MD Error-please disregard 09/10/2023 Anticoagulation (warfarin) [facility] [address] [place] [address] 1, [facility] Anticoagulation 09/09/2023 10:55 AM CDT Office Visit [facility] [address] [place] [address] Raiza Salcido MD Follow Up (Needs decide on a kidney specialist, would like to discuss./Needs INR done today.) 09/09/2023 Travel 09/04/2023 2:40 PM CDT Orders Only [facility] [address] [place] [id number] [place] [address] Lab 09/04/2023 Anticoagulation (warfarin) [facility] [address] [place] [address] 1, [facility] 09/04/2023 Travel 09/01/2023 Anticoagulation (warfarin) [facility] [address] [place] [address] 1, [facility] Anticoagulation (Chart update) 08/29/2023 2:00 PM CDT Office Visit [facility] [address] [place] [address] Alcon Zamora MD Consult (Severe nausea/vomiting & diarrhea after swimming, PCP referred for possible EGD) 08/29/2023 Travel 08/26/2023 10:30 AM CDT Procedure Only [facility] [address] [place] [address] Pooja Nieves L Ac Acupuncture 08/26/2023 Travel 08/14/2023 3:40 PM CDT Office Visit [facility] [address] [place] [address] Nasrin Cloud, DO UTI (Has had a UTI ongoing for about 3 weeks, also had an infection in her bowels. Took 2 courses of bactrim and 3 shots of rocephin. Would like referral to urology ) 08/14/2023 Travel 08/11/2023 1:00 PM CDT Nurse/Clinic Staff Only [facility] [address] [place] [phone] Injection (Medication) (Rocephin) 08/11/2023 Travel 08/10/2023 10:30 AM CDT Nurse/Clinic Staff Only [facility] [address] [place] [phone] Injection (Medication) 08/09/2023 9:15 AM CDT Office Visit [facility] [address] [place] [phone] Laura Parr NP UTI 08/09/[address] [facility] [address] [place] [phone] Laura Parr NP Need Meds (/) 08/09/2023 Travel 08/05/2023 9:00 AM CDT Procedure Only [facility] [address] [place] [address] Pooja Nieves L Ac Acupuncture 08/05/2023 Travel 08/01/2023 Telephone [facility] [address] [place] [address] Raiza Salcido MD Anticoagulation (BPA - Warfarin and Bactrim) 07/31/2023 Telephone [facility] [address] [place] [address] Raiza Salcido MD Refill Request (trimethoprim-sulfame thoxazole, 160-800 mg, (Bactrim DS) tab) 07/30/2023 Telephone [facility] [address] [place] [address] Raiza Salcido MD Anticoagulation (Warfarin start) from Last 3 Months Immunizations Name Administration Dates Next Due COVID-19 Vaccine Spikevax (M oderna 50mcg/0.5mL) 12YO+ 5124-4252 Formula PF 02/04/2023 COVID-19 vaccine (Pfizer-Bio NTech 30mcg/0.3mL) 12YO+ BIVALENT PF, MDV 05/31/2022 COVID-19 vaccine (Pfizer-Bio NTech 30mcg/0.3mL) 12YO+ BARBARA-SUCROSE PF, MDV 07/13/2021 COVID-19 vaccine (Pfizer-BioNTech 30mcg/0.3mL) P F, MDV 06/23/2020,06/02/2020 Family History Medical History Relation Name Comments Stroke Brother Stroke Heart Disease Father Hypertension Father Cancer Sister Kidney Cancer-breast No Family History Relation Name Status Comments Brother Father Sister Social History Tobacco Use Types Packs/Day Years Used Date Smoking Tobacco: Former Cigarettes 4 25 1 960 - 03/31/1984 Smokeless Tobacco: Never Tobacco Cessation:Counseling Given: No Comments:1985 Alcohol Use Standard Drinks/Week Comments Not Currently 0 (1 standard drink = 0.6 oz pur e alcohol) PHQ-2 Answer Date Recorded PHQ-2 TOTAL SCORE 0 06/26/2023 Social Connections Answer Date Recorded Frequency of Communication with Friends and Fami ly 0 12/09/2022 Financial Resource Strain Answer Date R ecorded Difficulty of Paying Living Expenses 3 12/09/2022 Difficulty of Paying Living Expenses Not on file 12/09/2022 Food Insecurity Answer Date Recorded Worried About Running Out of Food in the Last Ye ar 1 12/09/2022 Transportation Needs Answer Date Record ed Lack of Transportation (Medical) 1 12/09/2022 Housing Stability Answer Date Recorded Unable to Pay for Housing in the Last Year 1 12/09/2022 Sex and Gender Information Value Date Recorded Sex Assigned at Not on file Gender Identity Not on file Sexual Orientation Not on file Obstetrics History Para Term AB IAB SAB Ectopic Multiple Livin g Live Births 3 3 3 3 Date Outcome GA Total Labor Labor/2nd/3rd Weight Sex Type Anes PTL Ina A1 A5 Name Clin Term Term Term Last Filed Vital Signs Vital Sign Reading Time Taken Comments Blood Pressure 124/63 09/09/2023 10:54 AM CDT Pulse 68 09/09/2023 10:54 AM CDT Temperature 36.1 ??C (97 ??F) 08/09/2023 9:21 AM CDT Respiratory Rate 14 08/09/2023 9:21 AM CDT Oxygen Saturation 95% 09/09/2023 10:54 AM CDT Inhaled Oxygen Concentration - - Weight 81.6 kg (180 lb) 09/09/2023 10:54 AM CDT Height 168.9 cm (5' 6.5) 06/26/2023 7:45 AM CDT Body Mass Index 28.62 06/26/2023 7:45 AM CDT Plan of Treatment Upcoming Encounters Date Type Department Care Team (Late st Contact Info) Description 10/31/2023 9:10 AM CDT Orders Only [facility] [address] [place] [address] Lab, [facility] 11/27/2023 10:00 AM CDT Procedure Only [facility] [address] [place] [address] Pooja Nieves L Ac [address] [place] [address] Health Maintenance Due Date Last Done Comments Pneumococcal series for age 65+ (1 of 2 - PCV) 10/18/1946 Tdap 1952 Zoster (shingles) series for age 50+ (1 of 2) 10/18/1991 Tetanus booster 08/07/2020 08/07/2010 COVID-19 vaccine series (2022- season) 2023 02/04/2023, 05/31/2022, 07/13/2021, Additional history exists BMI (ht and wt on same day) for age 18+ 06/25/2024 06/26/2023, 02/28/2023, 06/21/2022, Additional history exists Depression screening for age 12+ 06/25/2024 06/26/2023, 06/21/2022, 06/05/2021, Additional history exists Medicare Wellness for age 65+ 06/26/2024, 06/21/2022, 05/29/2021, Additional history exists DEXA/DXA scan for age 65+ Completed 07/09/2018, Medical Devices Implanted Type Area Operator Lights Device Identifier Shelf Expiration Date Model / Serial / Lot Screw Polyaxial 6.5x45mm - [id number] Implanted:Qty: 1 on 09/27/2005 at [facility] Spine [employer] [id number] / / Screw Polyaxial 6.5x50mm - [id number] Implanted:Qty: 2 on 09/27/2005 at [facility] Spine [employer] [id number] / / Bone Canclls Crushed 30cc - [id number] Implanted:Qty: 1 on 09/27/2005 at [facility] Explanted:at [facility] (Quantity not on file) Spine BIOGRAFT [id number]# / [id number] / -[id number] Bone Canclls Crushed 30cc - [id number] Implanted:Qty: 1 on 09/27/2005 at [facility] Explanted:at [facility] (Quantity not on file) Spine BIOGRAFT 1054B# / [id number] / -[id number] Dave Kandis [id number] - [id number] Implanted:Qty: 4 on 09/27/2005 at [facility] Spine [employer] [id number] / / Screw Polyaxial 6.5x40mm - [id number] Implanted:Qty: 1 on 09/27/2005 at [facility] Spine [employer] [id number] / / Samuel Kandis Rad 40mm 108mm Radius - [id number] Implanted:Qty: 2 on 09/27/2005 at [facility] [id number] / / Screw Lmbr Post 6.5x50mm Xia3va - [id number] Implanted:Qty: 4 on 06/07/2022 by Sagrario Peters MD at [facility] N/A: Spine [place] Spine [id number] / / Set Screw Lmbr Xia3 - [id number] Implanted:Qty: 6 on 06/07/2022 by Sagrario Peters MD at [facility] N/A: Spine [employer] Spine [id number] / / Samuel Lmbr 70mmx6 Xia3 Cvd Titnm - [id number] Implanted:Qty: 2 on 06/07/2022 by Sagrario Peters MD at [facility] N/A: Spine [place] Spine [id number] / / Spacer Lmbr [id number] 0 Deg Avs Unilif - [id number] Implanted:Qty: 1 on 06/07/2022 by Sagrario Peters MD at [facility] N/A: Spine [place] Spine [id number] / / [id number] 1-4mm 30cc Medtronic Chips Canclls Freeze Dried Implanted:Qty: 1 on 06/07/2022 by Sagrario Peters MD at [facility] N/A: Spine [employer] Spine/Ortho 02/08/2026 [id number] / [id number] / [id number] moldabledemineral izedfibers2.5cc Implanted:Qty: 1 on 06/07/2022 by Sagrario Peters MD at [facility] N/A: Spine [employer] 11/28/2026 [id number] / [id number] / Description:MOLDABLE DEMINER ALIZED FIBERS 2.5CC Explanted Type Area Operator Lights Device Identifier Shelf Expiration Date Model / Serial / Lot Kandis Explanted:Qty: 1 on 06/07/2022 at [facility] N/A: Spine Description:2 SCREWS Procedures Procedure Name Priority Date/Time Associated Diagnosis Comments ACUPUNCTURE PLAN OF CARE Routine 10/30/2023 9:54 AM CDT Other low back pain PROTIME-INR STAT 10/24/2023 8:58 AM CDT Paroxysmal atrial fibrillation (HC) Anticoagulation monitoring, INR range 2-3 SCAN-ELECTROMYOGRAM EMG 10/24/2023 12:00 AM CDT US RENAL AND BLADDER COMPLETE Routine 10/22/2023 8:46 AM CDT Urinary tract infection without hematuria, site unspecified ACUPUNCTURE PLAN OF CARE Routine 10/20/2023 1:19 PM CDT Other low back pain ACUPUNCTURE PLAN OF CARE Routine 10/20/2023 1:19 PM CDT Other low back pain PROTIME-INR STAT 2023 9:04 AM CDT Paroxysmal atrial fibrillation (HC) Anticoagulation monitoring, INR range 2-3 ACUPUNCTURE PLAN OF CARE Routine 10/09/2023 10:01 AM CDT Other low back pain PROTIME-INR STAT 10/09/2023 9:01 AM CDT Paroxysmal atrial fibrillation (HC) Anticoagulation monitoring, INR range 2-3 PROTIME-INR STAT 10/06/2023 10:08 AM CDT Paroxysmal atrial fibrillation (HC) Anticoagulation monitoring, INR range 2-3 PROTIME-INR STAT 10/03/2023 9:06 AM CDT Paroxysmal atrial fibrillation (HC) Anticoagulation monitoring, INR range 2-3 PROTIME-INR STAT 09/29/2023 8:56 AM CDT Paroxysmal atrial fibrillation (HC) Anticoagulation monitoring, INR range 2-3 PROTIME-INR STAT 09/25/2023 11:03 AM CDT Paroxysmal atrial fibrillation (HC) Anticoagulation monitoring, INR range 2-3 PROTIME-INR STAT 09/22/2023 11:23 AM CDT Paroxysmal atrial fibrillation (HC) Anticoagulation monitoring, INR range 2-3 PROTIME-INR STAT 09/18/2023 11:05 AM CDT Paroxysmal atrial fibrillation (HC) Anticoagulation monitoring, INR range 2-3 ACUPUNCTURE PLAN OF CARE Routine 09/16/2023 3:41 PM CDT Other low back pain PROTIME-INR STAT 09/15/2023 11:28 AM CDT Paroxysmal atrial fibrillation (HC) Anticoagulation monitoring, INR range 2-3 PROTIME-INR STAT 09/12/2023 11:51 AM CDT Paroxysmal atrial fibrillation (HC) Anticoagulation monitoring, INR range 2-3 HEMOGLOBIN A1C SCREENING Routine 09/09/2023 12:04 PM CDT Elevated glucose BASIC METABOLIC PANEL Routine 09/09/2023 12:04 PM CDT Elevated glucose MAGNESIUM Routine 09/09/2023 12:04 PM CDT Low magnesium level PROTIME-INR STAT 09/09/2023 12:04 PM CDT Paroxysmal atrial fibrillation (HC) Anticoagulation monitoring, INR range 2-3 URINE CULTURE Routine 09/09/2023 11:48 AM CDT Recurrent UTI UA W/ SEDIMENT EXAM REFLEXED PER CRITERIA Routine 09/09/2023 11:48 AM CDT Recurrent UTI PROTIME-INR STAT 09/04/2023 2:53 PM CDT Paroxysmal atrial fibrillation (HC) Anticoagulation monitoring, INR range 2-3 ACUPUNCTURE PLAN OF CARE Routine 08/26/2023 10:25 AM CDT Other low back pain MAGNESIUM Add On 08/09/2023 10:09 AM CDT Urinary tract infection symptoms CBC WITH AUTO DIFFERENTIAL STAT 08/09/2023 10:09 AM CDT Urinary tract infection symptoms CBC WITH AUTO DIFFERENTIAL STAT 08/09/2023 10:09 AM CDT Urinary tract infection symptoms BASIC METABOLIC PANEL STAT 08/09/2023 10:09 AM CDT Urinary tract infection symptoms URINALYSIS MICROSCOPIC STAT 08/09/2023 9:25 AM CDT Urinary tract infection symptoms URINE CULTURE Routine 08/09/2023 9:25 AM CDT Urinary tract infection symptoms UA W/ SEDIMENT EXAM REFLEXED PER CRITERIA STAT 08/09/2023 9:25 AM CDT Urinary tract infection symptoms ACUPUNCTURE PLAN OF CARE Routine 08/05/2023 8:59 AM CDT Other low back pain XR DXA BONE DENSITY 2 SITES AXIAL AND 1 SITE PERIPHERAL Routine 07/09/2018 3:35 PM CDT Post-menopausal from Last 3 Months or Most Recently Relevant to Health Maintenance Results * (ABNORMAL) PROTIME-INR (10/24/2023 8:58 AM CDT) Only the most recent of13 resultswithin the time period is included. INR 1.9(H) <1.3 10/24/2023 9:12 AM CDT [facility] PROTIME 21.2(H) 10.3 - 12.3 sec 10/24/2023 9:12 AM CDT [facility] Blood BLOOD SPECIMEN / Unknown Venipuncture / Unknown 10/24/2023 8:58 AM CDT 10/24/2023 9:00 AM CDT Narrative [facility] - 10/24/2023 9:12 AM CDT ?Therapeutic Range 2.0-3.0 for most anticoagulated patients 2.5-3.5 or 4.0 for high risk patients The INR is only used for patients on stable oral anticoagulant therapy. It makes no significant contribution to the diagnosis or treatment of patients whose Protime is prolonged for other reasons. INR results are increased when heparin levels exceed 1.0 U/mL, which corresponds to an aPTT >125 seconds if the patient is on UFH. Raiza Salcido MD HEMATOLOGY [facility] [address] [place] [address] * SCAN-ELECTROMYOGRAM EMG (10/24/2023 12:00 AM CDT) Scanner OTHER * US RENAL AND BLADDER COMPLETE (10/22/2023 8:46 AM CDT) Anatomical Region Laterality Modality Abdomen, AORTA, KIDNEYS Ultrasou nd 10/22/2023 8:52 AM CDT Impressions 10/22/2023 8:52 AM CDT Normal renal ultrasound. Dictated by Michael Ortez MD @ 10/22/2023 8:52:13 AM (Electronically Signed) Narrative 10/22/2023 8:52 AM CDT For Patients: ??As a result of the Cures Act, medical imaging exams and procedure reports are released immediately into your electronic medical record. ??You may view this report before your referring provider. ??If you have questions, please contact your health care provider. INDICATION: UTI without hematuria TECHNIQUE: Ultrasound renal bilateral. Francis-scale and color Doppler sonographic images were acquired of the kidneys and urinary bladder. COMPARISON: None FINDINGS: Right kidney: 9.5 x 4.5 x 6.1 cm. Normal echotexture and cortex. No masses, stones, or hydronephrosis. Left kidney: 10.2 x 4.4 x 5.0 cm. Normal echotexture and cortex. No masses, stones, or hydronephrosis. Bladder: Normal in caliber and appearance. Color Doppler images demonstrate bilateral ureteral jets. Prevoid volume 70 mL. Postvoid volume 8 mL. Procedure Note Urbano Ortez MD - 10/22/2023 For Patients: As a result of the Cures Act, medical imagingexams and procedure reports are released immediately into your electronicmedical record. You may view this report before your referring provider.If you have questions, please contact your health care provider. INDICATION: UTI without hematuria TECHNIQUE: Ultrasound renal bilateral. Francis-scale and color Doppler sonographicimages were acquired of the kidneys and urinary bladder. COMPARISON: None FINDINGS: Right kidney: 9.5 x 4.5 x 6.1 cm. Normal echotexture and cortex. Nomasses, stones, or hydronephrosis. Left kidney: 10.2 x 4.4 x 5.0 cm. Normal echotexture and cortex. Nomasses, stones, or hydronephrosis. Bladder: Normal in caliber and appearance. Color Doppler imagesdemonstrate bilateral ureteral jets. Prevoid volume 70 mL. Postvoid volume8 mL. IMPRESSION: Normal renal ultrasound. Dictated by Michael Ortez MD @ 10/22/2023 8:52:13 AM (Electronically Signed) Non-Excellian Provider US * HEMOGLOBIN A1C SCREENING (09/09/2023 12:04 PM CDT) HEMOGLOBIN A1C SCREENING 5.9 <=6.4 % 09/10/2023 10:05 AM CDT [facility] Blood BLOOD SPECIMEN / Unknown Venipuncture / Unknown 09/09/2023 12:04 PM CDT 09/09/2023 12:04 PM CDT Narrative [facility] - 09/10/2023 10:05 AM CDT ? (<5.7%) ?Normal ? (5.7% to 6.4%) ? Indicates prediabetes ? (>=6.5%) ? Confirms diabetes Falsely low levels may be seen with: Recent Transfusion, Recent Significant Blood Loss, Hemolytic Diseases, or Falsely elevated levels may be seen with: Untreated Anemias, Splenectomy Raiza Salcido MD CHEMISTRY Performing Organization Address City/[facility]/ZIP Co de Phone Number [facility] [address] [place] [address], * MAGNESIUM (09/09/2023 12:04 PM CDT) Only the most recent of2 resultswithin the time period is included. MAGNESIUM 1.9 1.6 - 2.4 mg/dL 09/10/2023 3:48 AM CDT [facility] Blood BLOOD SPECIMEN / Unknown Venipuncture / Unknown 09/09/2023 12:04 PM CDT 09/09/2023 12:04 PM CDT Raiza Salcido MD [facility]Y [facility] [address] [place] [address], * (ABNORMAL) BASIC METABOLIC PANEL (09/09/2023 12:04 PM CDT) Only the most recent of2 resultswithin the time period is included. SODIUM 141 136 - 145 mmol/L 09/10/2023 3:48 AM CDT [facility] POTASSIUM 4.0 3.5 - 5.1 mmol/L 09/10/2023 3:48 AM CDT [facility] CHLORIDE 101 98 - 107 mmol/L 09/10/2023 3:48 AM CDT [facility] CO2,TOTAL 28 22 - 29 mmol/L 09/10/2023 3:48 AM CDT [facility] ANION GAP 12 5 - 18 09/10/2023 3:48 AM CDT [facility] GLUCOSE 91 70 - 99 mg/dL 09/10/2023 3:48 AM CDT [facility] CALCIUM 9.4 8.8 - 10.2 mg/dL 09/10/2023 3:48 AM CDT [facility] BUN 16 8 - 23 mg/dL 09/10/2023 3:48 AM T [facility] CREATININE 0.91(H) 0.50 - 0.90 mg/dL 09/10/2023 3:48 AM T [facility] BUN/CREAT RATIO 18 10 - 20 3:48 AM T [facility] eGFR 64(L) >90 mL/min/1.7 3m2 09/10/2023 3:48 AM T [facility] Comment:As of 2021, eG FR is calculated by the CKD-EPI creatinine equation without race adjustment. ??eGFR can be influenced by muscle mass, exercise, and diet. ??The reported eGFR is an estimation only and is only applicable if the renal function is stable. Blood BLOOD SPECIMEN / Unknown Venipuncture / Unknown 09/09/2023 12:04 PM CDT 09/09/2023 12:04 PM CDT Raiza Salcido MD CHEMISTRY Performing Organization Address [facility] Co de Phone Number [facility] [address] [place] [address], * URINE CULTURE (09/09/2023 11:48 AM CDT) Only the most recent of2 resultswithin the time period is included. CULTURE <10,000 CFU/mL multiple organisms 09/11/2023 11:33 AM CDT [facility] Urine URINE SPECIMEN / Unknown Non-Blood / Unknown 09/09/2023 11:48 AM CDT 09/09/2023 11:48 AM CDT Raiza Salcido MD MICROBIOLOGY Performing Organization Address [facility] Phone Number [facility] [address] [place] [address], * UA W/ SEDIMENT EXAM REFLEXED PER CRITERIA (09/09/2023 11:48 AM CDT) Only the most recent of2 resultswithin the time period is included. COLOR Yellow Yellow Color 09/09/2023 11:51 AM CDT [facility] CLARITY Clear Clear Clarity 09/09/2023 11:51 AM CDT [facility] SPECIFIC GRAVITY,URINE 1.015 1.010, 1.015, 1.020, 1.025 09/09/2023 11:51 AM CDT [facility] PH,URINE 5.5 6.0, 7.0, 8.0, 5.5, 6.5, 7.5, 8.5 09/09/2023 11:51 AM CDT [facility] UROBILINOGEN, QUALITATIVE Normal Normal EU/dl 09/09/2023 11:51 AM CDT [facility] PROTEIN, URINE Negative Negative mg/dL 09/09/2023 11:51 AM CDT [facility] GLUCOSE, URINE Negative Negative mg/dL 09/09/2023 11:51 AM CDT [facility] KETONES,URINE Negative Negative mg/dL 09/09/2023 11:51 AM CDT [facility] BILIRUBIN,URI NE Negative Negative 09/09/2023 11:51 AM CDT [facility] OCCULT BLOOD,URINE Negative Negative 09/09/2023 11:51 AM CDT [facility] NITRITE Negative Negative 09/09/2023 11:51 AM CDT [facility] LEUKOCYTE ESTERASE Negative Negative 09/09/2023 11:51 AM CDT [facility] Urine URINE SPECIMEN / Unknown Non-Blood / Unknown 09/09/2023 11:48 AM CDT 09/09/2023 11:48 AM CDT Raiza Salcido MD URINE [facility] [address] [place] [address], * CBC WITH AUTO DIFFERENTIAL (08/09/2023 10:09 AM CDT) WHITE BLOOD COUNT 6.4 4.5 - 11.0 thou/cu mm 08/09/2023 10:16 AM [facility] RED BLOOD COUNT 4.67 4.00 - 5.20 mil/cu mm 08/09/2023 10:16 AM [facility] HEMOGLOBIN 14.6 12.0 - 16.0 g/dL 08/09/2023 10:16 AM [facility] HEMATOCRIT 44.4 33.0 - 51.0 % 08/09/2023 10:16 AM [facility] MCV 95 80 - 100 fL 08/09/2023 10:16 AM [facility] MCH 31.3 26.0 - 34.0 pg 08/09/2023 10:16 AM [facility] MCHC 32.9 32.0 - 36.0 g/dL 08/09/2023 10:16 AM [facility] RDW 13.3 11.5 - 15.5 % 08/09/2023 10:16 AM [facility] PLATELET COUNT 273 140 - 440 thou/cu mm 08/09/2023 10:16 AM [facility] MPV 8.3 6.5 - 11.0 fL 08/09/2023 10:16 AM [facility] % NEUT 58.6 % 08/09/2023 10:16 AM [facility] % LYMPH 30.7 % 08/09/2023 10:16 AM [facility] % MONO 9.8 % 08/09/2023 10:16 AM [facility] % EOS 0.6 % 08/09/2023 10:16 AM [facility] % BASO 0.3 % 08/09/2023 10:16 AM [facility] ABSOLUTE NEUTROPHILS 3.7 1.7 - 7.0 thou/cu mm 08/09/2023 10:16 AM [facility] ABSOLUTE LYMPHOCYTES 2.0 0.9 - 2.9 thou/cu mm 08/09/2023 10:16 AM [facility] ABSOLUTE MONOCYTES 0.6 <0.9 thou/cu mm 08/09/2023 10:16 AM [facility] ABSOLUTE EOSINOPHILS 0.0 <0.5 thou/cu mm 08/09/2023 10:16 AM [facility] ABSOLUTE BASOPHILS 0.0 <0.3 thou/cu mm 08/09/2023 10:16 AM [facility] Blood BLOOD SPECIMEN / Unknown Venipuncture / Unknown 08/09/2023 10:09 AM CDT 08/09/2023 10:11 AM T Laura Parr NP HEMATOLOGY [facility] [address] [place] [address] * URINALYSIS MICROSCOPIC (08/09/2023 9:25 AM T) RBC 0-2 0-2, None Seen /HPF 08/09/2023 9:52 AM CDT [facility] WBC 3-5 0-2, 3-5, None Seen /HPF 08/09/2023 9:52 AM CDT [facility] BACTERIA Few None Seen, Rare, Few Bacteria/H PF 08/09/2023 9:52 AM CDT [facility] EPITHELIAL CELLS Few None Seen, Few Epi/HPF 08/09/2023 9:52 AM CDT [facility] Mucus Present 08/09/2023 9:52 AM CDT [facility] Urine URINE SPECIMEN / Unknown Non-Blood / Unknown 08/09/2023 9:25 AM CDT 08/09/2023 9:39 AM CDT Laura Parr NP URINE [facility] [address] [place] [address] * (ABNORMAL) XR DXA BONE DENSITY 2 SITES AXIAL AND 1 SITE PERIPHERAL (07/09/2018 3:35 PM CDT) Anatomical Region Laterality Modality LUMBAR SPINE Other Narrative 07/15/2018 10:55 AM CDT Please see scanned document for results of this study. Raiza Salcido MD DEXA from Last 3 Months or Most Recently Relevant to Health Maintenance Advance Directives Documents on File Type Date Recorded Patient Occupational Ther Expl anation Healthcare Directive 04/22/2018 10:11 PM * Full Code (Latest Code Status on File) Date Activated Date Inactivated Comments 06/26/2022 3:23 PM 07/03/2022 4:22 PM Question Answer Comments Code Status Discussion: Reviewed Preferences * Full Code Date Activated Date Inactivated Comments 06/07/2022 4:27 PM 06/11/2022 1:45 PM Question Answer Comments Code Status Discussion: Unable to Assess Preferences, Provider to review later * Full Code Date Activated Date Inactivated Comments 04/17/2018 6:47 PM 04/18/2018 1:18 PM * Full Code Date Activated Date Inactivated Comments 09/27/2005 8:22 PM 10/01/2005 4:08 PM * Full Code Date Activated Date Inactivated Comments 09/27/2005 5:12 PM 09/27/2005 8:22 PM Care Teams Care Director Relationship Specialty Start Date End Date Raiza Salcido MD [address] [place] [address] [phone] (work) PCP - General 08/21/05 [place] [id number] [address] [place] [address] Ophthalmology Surgery 04/16/11 Arthur Simon MD [address] [place] [address] Surgery - Orthopedics 05/17/14
== END 2023-10-30 13:43 | disposition home or self-care (01) ==
LOC: NPINS 13:42
PROVIDERS: PCP Family Medicine; Visit Provider Psychiatry & Neurology Neurology
DX: M62.81 Muscle weakness (generalized) (principal); R13.10 Dysphagia, unspecified; G62.9 Polyneuropathy, unspecified
CPT/HCPCS: 86041; 86366; 86596

== ENCOUNTER 2024-08-03 07:30 | Outpatient (CLI) | payer MEDICARE, BC, SELFPAY | END 2024-08-03 07:31 | disposition home or self-care (01) | LOC: INJ CL 07:36 | PROVIDERS: PCP Family Medicine; Visit Provider Family Medicine | DX: M54.16 Radiculopathy, lumbar region (principal); M51.369 Other intervertebral disc degeneration, lumbar region without mention of lumbar back pain or lower extremity pain | CPT/HCPCS: 64483; 64484; J1100; Q9966 ==